=== PATIENT | male | born 1950 | race Two or more races ===

== ENCOUNTER 2025-02-06 16:38 | Emergency (ER) | payer BC, OTHER ==
[~2025-02-06] VITALS: Ht 185.4 cm; Wt 113.6 kg
--- NOTE | 2025-02-06 17:30 | ECG ---
[facility] Test Date: 2025-02-06 Test Time: 16:59:34 Pat Name: GUY MUSTAFA Department: ED Room: Gender: M Commercial Property Manager: GV : 1950 Requested By: PILAR DEMPSEY Order Number: [id number] Reading MD: Wolf Jha Measurements Intervals [place] Rate: 81 P: 68 MA: 164 QRS: 5 QRSD: 96 T: 62 QT: 451 QTc: 524 Interpretive Statements Sinus rhythm Borderline T wave abnormalities Prolonged QT interval Electronically Signed On 02-07-2025 17:41:56 PDT by Wolf Jha Please click the below link to view image of tracing.
[2025-02-06 17:33] LABS: Basophils # (auto) 0 10 ^3/uL (0-0.2); Basophils % (auto) 0.4 % (0.0-2.0); Eosinophils # (auto) 0.1 10 ^3/uL (0-0.8); Eosinophils % (auto) 1.1 % (0.0-7.0); Hematocrit 48.5 % (41.0-53.0); Hemoglobin 16.6 g/dL (13.5-17.5); Lymphocytes # (auto) 1.8 10 ^3/uL (0.4-5.4); Lymphocytes % (auto) 19.8 % (10.0-50.0); Mean Corpuscular Hemoglobin 31.4 pg (28.0-32.0); Mean Corpuscular Hgb Conc. 34.2 g/dL (32.0-36.0); Monocytes # (auto) 0.8 10 ^3/uL (0-1.3); Monocytes % (auto) 9.4 % (0.0-12.0); Neutrophils # (auto) 6.2 10 ^3/uL (1.6-8.6); Neutrophils % (auto) 69.3 % (37.0-80.0); Nucleated Red Blood Cells % 0.3 %; Platelet Count (auto) 244 10^3/uL (140-450); Red Blood Cells 5.27 10^6/uL (4.5-5.90); Red Cell Distribution Width 13.9 % (11.8-14.3); White Blood Cell 8.9 10^3/uL (4.4-10.8)
[2025-02-06 17:45] LABS: Sodium 145 mmol/L (136-145)
[2025-02-06 17:46] LABS: Anion Gap 12 (5-15); Calcium 10.1 mg/dL (8.7-10.4); Carbon Dioxide 23 mmol/L (20-31)
[2025-02-06 17:51] LABS: Blood Urea Nitrogen 10 mg/dL (9-23); Chloride 110 mmol/L (98-107); Glucose 100 mg/dL (74-106); Potassium 3.3 mmol/L (3.5-5.1)
--- NOTE | 2025-02-06 18:09 | DVH ---
CHEST RADIOGRAPH Indication: gen weak Technique: Single frontal view of the chest was obtained COMPARISON: None FINDINGS: Lines and Tubes: None Lungs: Clear Pleura: No effusion. No pneumothorax. Cardiomediastinal contours: Mild cardiomegaly Bones: Unremarkable IMPRESSION: 1. Mild cardiomegaly
--- NOTE | 2025-02-06 19:11 | ED.PDOC ---
History of Present Illness HPI Comments 75-year-old male brought in by EMS. Patient was complaining of generalized weakness for the last three days. States he did see PCP last week Thursday but failed to mention. States he takes no medications has had no prior surgeries. States he was seen at the PCP for dry skin on his elbow. Patient states he does smoke marijuana, denies alcohol use. Denies smoking. EMS states that his house was very hot, he had a Swamp cooler running but it was blowing out hot air. Patient was given a L of fluid in route and felt significant improvement. Chief Complaint: General Weakness Time Seen by MD: 16:39 Primary Care Provider: AIXA Reviewed Notes: Nurses Notes Allergies: Coded Allergies: NO KNOWN ALLERGIES (Unverified , 02/06/25) Information Source: Patient, Emergency Med Personnel Mode of Arrival: EMS Past Medical History PAST MEDICAL HISTORY: Denies Surgical History: Denies all surgeries Family History Family History: Reviewed,noncontributory to illness Constitutional: reports: diaphoresis, fatigue; denies: chills, fever, malaise, sweats, weakness, others EENTM: denies: blurred vision, double vision, ear bleeding, ear discharge, ear drainage, ear pain, ear ringing, eye pain, eye redness, hearing loss, mouth pain, mouth swelling, nasal discharge, nose bleeding, nose congestion, nose pain, photophobia, tearing, throat pain, throat swelling, voice changes, others Respiratory: denies: cough, hemoptysis, orthopnea, SOB at rest, shortness of breath, SOB with excertion, stridor, wheezing, others Cardiovascular: denies: chest pain, dizzy spells, diaphoresis, Dyspnea on exertion, edema, irregular heart beat, left arm pain, lightheadedness, palpitations, PND, syncope, others Gastrointestinal: denies: abdomen distended, abdominal pain, blood streaked bowels, constipated, diarrhea, dysphagia, difficulty swallowing, hematemesis, melena, nausea, poor appetite, poor fluid intake, rectal bleeding, rectal pain, vomiting, others Genitourinary: denies: burning, dysuria, flank pain, frequency, hematuria, incontinence, penile discharge, penile sore, pain, testicle pain, testicle swelling, urgency, others Neurological: denies: dizziness, fainting, headache, left sided numbness, left sided weakness, numbness, paresthesia, pre-existing deficit, right sided numbness, right sided weakness, seizure, speech problems, tingling, tremors, weakness, others Musculoskeletal: denies: back pain, gout, joint pain, joint swelling, muscle pain, muscle stiffness, neck pain, others Integumetry: denies: bruises, change in color, change in hair/nails, dryness, laceration, lesions, lumps, rash, wounds, others Physical Exam General Appearance: No Apparent Distress, Normal HEENT: Normal ENT Inspection, Pharynx Normal, TMs Normal Neck: Full Range of Motion, Non-Tender, Normal, Normal Inspection Respiratory: Chest Non-Tender, Lungs Clear, No Accessory Muscle Use, No Respiratory Distress, Normal Breath Sounds Cardiovascular: No Edema, No JVD, No Murmur, No Gallop, Normal Peripheral Pulses, Regular Rate/Rhythm Breast Exam: Deferred Gastrointestinal: No Organomegaly, Non Tender, No Pulsatile Mass, Normal Bowel Sounds, Soft Genitalia: Deferred Pelvic: Deferred Rectal: Deferred Extremities: No calf tenderness, Normal capillary refill, Normal inspection, Normal range of motion, Non-tender, No pedal edema Musculoskeletal : Apperance: Normal Neurologic: Alert, it application administrator II-XII nml as Tested, No Motor Deficits, Normal Affect, Normal Mood, No Sensory Deficits Cerebellar Function: Normal Reflexes: Normal Skin: Dry, Normal Color, Warm Lymphatic: No Adenopathy Was a procedure done? Was a procedure done?: No Differential Dx Considerations may include: Dehydration, CHF, MD, electrolyte imbalance. X-Ray, Labs, Meds, VS Vital Signs Date Time Temp Pulse Resp B/P (MAP) Pulse Ox O2 Delivery O2 Flow Rate FiO2 02/06/25 16:59 81 02/06/25 16:51 98.4 82 18 190/82 (118) 98 98.4 Lab Test 02/06/25 17:10 Range/Units White Blood Count 8.9 4.4-10.8 10^3/uL Red Blood Count 5.27 4.5-5.90 10^6/uL Hemoglobin 16.6 13.5-17.5 g/dL Hematocrit 48.5 41.0-53.0 % Mean Corpuscular Volume 92.0 80.0-100.0 fL Mean Corpuscular Hemoglobin 31.4 28.0-32.0 pg Mean Corpuscular Hemoglobin Concent 34.2 32.0-36.0 g/dL Red Cell Distribution Width 13.9 11.8-14.3 % Platelet Count 244 140-450 10^3/uL Mean Platelet Volume 9.5 6.9-10.8 fL Neutrophils (%) (Auto) 69.3 37.0-80.0 % Lymphocytes (%) (Auto) 19.8 10.0-50.0 % Monocytes (%) (Auto) 9.4 0.0-12.0 % Eosinophils (%) (Auto) 1.1 0.0-7.0 % Basophils (%) (Auto) 0.4 0.0-2.0 % Neutrophils # (Auto) 6.2 1.6-8.6 10 ^3/uL Lymphocytes # (Auto) 1.8 0.4-5.4 10 ^3/uL Monocytes # (Auto) 0.8 0-1.3 10 ^3/uL Eosinophils # (Auto) 0.1 0-0.8 10 ^3/uL Basophils # (Auto) 0 0-0.2 10 ^3/uL Nucleated Red Blood Cells 0.3 % Sodium Level 145 136-145 mmol/L Potassium Level 3.3 L 3.5-5.1 mmol/L Chloride Level 110 H 98-107 mmol/L Carbon Dioxide Level 23 20-31 mmol/L Anion Gap 12 5-15 Blood Urea Nitrogen 10 9-23 mg/dL Creatinine 1.25 0.700-1.30 mg/dL Glomerular Filtration Rate Calc 61 >90 mL/min BUN/Creatinine Ratio 8.0 L 10.0-20.0 Serum Glucose 100 74-106 mg/dL Calcium Level 10.1 8.7-10.4 mg/dL X-Ray, Labs, Meds, VS Comment Imaging: X-rays and CT scans were reviewed and interpreted by this provider, imaging shows no fractures and no pathological disease. Pending radiology review. Laboratory: Labs reviewed and interpreted by this provider. No significant abnormalities noted. Patient has prior medical visits reviewed. Med reconciliation performed Vital signs reviewed Time of 1ST Reevaluation: 19:10 Reevaluation 1ST: Improved Patient Education/Counseling: Diagnosis, Treatment, Need For Follow Up (Follow up with PCP in the next 2-4 days. Return to the emergency department if s ymptoms worsen over the next 24 hours.) Family Education/Counseling: Diagnosis SEPSIS Sepsis Screen Date sepsis recognized/suspect: Feb 06, 2025 Time Sepsis recognized/suspect: 1650 Recent Procedure: No On Antibiotic Therapy: No Respiratory Rate >20: No Heart Rate >90: No Temp<36 C (96.8 F) or >38.3 C: No SBP <90 or MAP <65 mmHG: No New Acute Mental Status Change: No Is the patient on CPAP, BIPAP,: No Orders/Vitals/Labs Physician Orders Urinalysis (02/06/25 16:45) Chest Xray 1 View (02/06/25 16:45) Vital Signs Date Time Temp Pulse Resp B/P (MAP) Pulse Ox O2 Delivery O2 Flow Rate FiO2 02/06/25 16:59 81 02/06/25 16:51 98.4 82 18 190/82 (118) 98 98.4 Laboratory Tests Test 02/06/25 17:10 White Blood Count 8.9 10^3/uL (4.4-10.8) Departure 1 Departure Time of Disposition: 19:10 Impression: Primary Impression: Heat exhaustion Qualified Codes: T67.5XXA - Heat exhaustion, unspecified, initial encounter Additional Impressions: Dehydration Hypokalemia Disposition: 01 HOME / SELF CARE / HOMELESS Condition: Fair Discharged With: Self Critical Care Note Critical Care Time?: No Stability Stability form required: No Heart Score Heart Score: Heart Score Response (Comments) Value History N/A 0 EKG N/A 0 Age N/A 0 Risk Factors N/A 0 Troponin N/A 0 Total 0 PILAR DEMPSEY Feb 06, 2025 19:11
[2025-02-06] MEDS: POTASSIUM EFFERVESENT TAB 25 MEQ PO ONE (20:19)
[2025-02-06 20:50] VITALS: BP 161/97; PULSE 91; RESP 19; TEMP 98.3
[2025-02-06 20:53] VITALS: O2SAT 93
[2025-02-07] MEDS ORDERED: CLON0.1T PO (18:56)
[2025-02-07] MEDS ORDERED: HYDR-4902 PO (18:56)
== END 2025-02-06 20:57 | disposition home or self-care (01) ==
LOC: ER 16:38 → EDBD 16:38 → ER 20:57
DX: T67.5XXA Heat exhaustion, unspecified, initial encounter (principal); E86.0 Dehydration; E87.6 Hypokalemia; X30.XXXA Exposure to excessive natural heat, initial encounter; Y93.89 Activity, other specified; Y92.89 Other specified places as the place of occurrence of the external cause; Y99.8 Other external cause status
CPT/HCPCS: 36415; 71045; 80048; 85025; 93005

== ENCOUNTER 2025-02-07 13:03 | Emergency (ER) | payer BC ==
[~2025-02-07] VITALS: Ht 182.9 cm; Wt 105.0 kg
--- NOTE | 2025-02-07 13:12 | ED.PDOC ---
History of Present Illness HPI Comments HPI: Poor Historian. 75-year-old male brought in by ambulance from home for generalized weakness. Patient lives alone at home. Patient was here yesterday and was discharged home. An APS case was open according to EMS. Patient is unable take care of himself at home. He is today willing to be placed somewhere. Patient is too weak to get up to even use the restroom he says and he had to pee on the floor. No history of fall or trauma or injury. Vital signs per EMS were stable. He was slightly hypertensive. EMS describes the home situation that it was messy and extremely hot and there was no air conditioning. Past Medical History: Past Surgical History: REVIEW OF SYSTEMS: CONSTITUTIONAL: Denies acute: fever, diaphoresis, chills, . HEAD: Denies acute: headache, photophobia Eyes: Denies acute: Double vision, vision loss, eye pain, eye discharge. EARS: Denies acute: tinnitus, hearing loss, ear discharge, ear pain, THROAT: Denies acute: sore throat, swelling, difficulty swallowing , pain with swallowing, change in voice. NECK: Denies acute: neck pain, neck swelling, stiff neck. HEART: Denies acute : chest pain, palpitations, LUNGS: Denies acute: SOB, wheezing, cough, hemoptysis ABDOMEN: Denies acute: abdominal pain, Nausea, Vomiting, diarrhea, melena , hematemesis, hematochezia SKIN: Denies acute: rash, redness, lesions, itchiness. EXTREMITIES: Denies acute: calf pain, numbness, tingling, weakness, denies pain in extremity. Denies acute: Low back pain. Neuro: Denies acute: focal neurological deficit, motor or sensory focal neurological deficit, tremors, seizure like activity, confusion, dizziness, change in mental status, loss of bowel or bladder function, cauda equina like symptoms. : Denies acute: dysuria, hematuria, flank pain, increase in urinary frequency. PSYCH: Denies acute: hallucination, suicidal ideation, homicidal ideation. PHYSICAL EXAM: General: ---no-----acute distress, awake and alert. Head: normocephalic, atraumatic. Neck: supple, trachea is midline, no swelling. Throat: Normal phonation. Eyes:, no erythema, no purulent discharge, no proptosis, no icterus. Heart: regular rate, regular rhythm, no significant murmur appreciated. Lungs: no apparent respiratory distress, Able to speak in full sentences. No wheezing, no rhonchi, no crackles. No stridors Clear to auscultation bilaterally. Abdomen: non tender to palpation, non distended, soft, no guarding, no rebound, + bowel sounds. Obese Neuro: Awake, Alert, oriented to name, self, situation, follows commands GCS=15. Speech is normal. Skin: no petechia, no purpura, no cyanosis, non-pale, not jaundice. Lower extremities: --no - Pitting edema no deformity, no focal swelling, no calf TTP. Makes eye contact. moves all four extremities. Face: no apparent facial droop. ED COURSE: DISCLAIMER: This medical document was created using an electronic medical record system with voice recognition software and computerized dictation system. Although this document has been carefully reviewed, there might still be some phonetic and typographical errors. Occasional wrong-word or "sound-alike" substitutions may have occurred due to the inherent limitations of voice recognition software. These areas are purely typographical due to imperfections of the software programs and do not reflect any compromise in the patient's medical care. Please read the chart carefully and recognize, using context, where these substitutions have occurred. Time Seen by MD: 13:00 Primary Care Provider: AIXA Reviewed Notes: Nurses Notes, Medications, Allergies Allergies: Coded Allergies: NO KNOWN ALLERGIES (Unverified , 02/06/25) Information Source: Patient, Emergency Med Personnel Mode of Arrival: EMS Severity: Moderate Duration: Since onset Prehospital treatment: None Past Medical History PAST MEDICAL HISTORY: Denies Surgical History: Denies all surgeries Family History Family History: Reviewed,noncontributory to illness, Unknown Social History Smoker: Non-Smoker Alcohol: Denies ETOH Use Drugs: Denies Drug Use Lives In: Home Was a procedure done? Was a procedure done?: No X-Ray, Labs, Meds, VS Vital Signs Date Time Temp Pulse Resp B/P (MAP) Pulse Ox O2 Delivery O2 Flow Rate FiO2 02/07/25 15:06 206/97 02/07/25 13:58 98.1 80 16 190/90 (123) 95 98.1 02/07/25 13:58 80 20 95 Room Air* 0 21 02/07/25 13:31 85 02/07/25 13:16 98.9 93 18 176/104 (128) 98 98.9 Lab Test 02/07/25 14:01 02/07/25 13:13 Range/Units Lactic Acid Level 1.1 0.4-2.0 mmol/L Troponin I High Sensitivity 23 22 </=54 ng/L White Blood Count 10.2 4.4-10.8 10^3/uL Red Blood Count 5.11 4.5-5.90 10^6/uL Hemoglobin 16.7 13.5-17.5 g/dL Hematocrit 47.6 41.0-53.0 % Mean Corpuscular Volume 93.2 80.0-100.0 fL Mean Corpuscular Hemoglobin 32.7 H 28.0-32.0 pg Mean Corpuscular Hemoglobin Concent 35.1 32.0-36.0 g/dL Red Cell Distribution Width 14.3 11.8-14.3 % Platelet Count 269 140-450 10^3/uL Mean Platelet Volume 9.3 6.9-10.8 fL Neutrophils (%) (Auto) 37.0-80.0 % Lymphocytes (%) (Auto) 10.0-50.0 % Monocytes (%) (Auto) 0.0-12.0 % Basophils (%) (Auto) 0.0-2.0 % Neutrophils # (Auto) 1.6-8.6 10 ^3/uL Lymphocytes # (Auto) 0.4-5.4 10 ^3/uL Monocytes # (Auto) 0-1.3 10 ^3/uL Differential Total Cells Counted 100.0 100 Neutrophils % (Manual) 69 37.0-80.0 Band Neutrophils % (Manual) 1 Lymphocytes % (Manual) 23 10.0-50.0 Monocytes % (Manual) 7 0-12 Eosinophils % (Manual) 0 0-7 Basophils % (Manual) 0 0.0-2.0 Metamyelocytes % (manual) 0 Myelocytes % (Manual) 0 Promyelocytes % (Manual) 0 Blast Cells % (Manual) 0 Reactive Lymphocytes 0 Platelet Estimate Adequate Sodium Level 143 136-145 mmol/L Potassium Level 3.4 L 3.5-5.1 mmol/L Chloride Level 110 H 98-107 mmol/L Carbon Dioxide Level 22 20-31 mmol/L Anion Gap 11 5-15 Blood Urea Nitrogen 11 9-23 mg/dL Creatinine 1.21 0.700-1.30 mg/dL Glomerular Filtration Rate Calc 63 >90 mL/min BUN/Creatinine Ratio 9.1 L 10.0-20.0 Serum Glucose 107 H 74-106 mg/dL Calcium Level 9.9 8.7-10.4 mg/dL Total Bilirubin 1.1 H 0.2-1.0 mg/dL Aspartate Amino Transferase (AST) 41 H <34 U/L Alanine Aminotransferase (ALT) 26 7-40 U/L Alkaline Phosphatase 88 46-116 U/L Creatine Kinase 733 H 46-171 U/L Total Protein 7.5 5.7-8.2 g/dL Albumin 4.6 3.2-4.8 g/dL Current Medications Medications (Trade) Dose Ordered Sig/Bryan Route Start Time Stop Time Status Last Admin Clonidine HCl (Catapres Tablet) 0.1 mg ONCE ONCE PO 02/07/25 14:45 02/07/25 14:48 DC 02/07/25 15:06 [place] [id number] Ph: [phone] DIAGNOSTIC IMAGING Diagnostic Imaging Report : [id number] Signed PATIENT: GUY MUSTAFA ACCT: [id number] UNIT: [id number] : 1950 LOC: ER ROOM / BED: / AGE / SEX: 75 / M ADM STATUS: REG ER SERVICE 1310 ORDERING PHYSICIAN: STACIE NICK DO PROCEDURE(s): CXRP - CHEST PORTABLE REASON: weak ORDER NUMBER(s): [id number], ACCESSION NUMBER(s): [id number] EXAM: XY CHEST PORTABLE HISTORY: weak TECHNIQUE: 1 view of the chest COMPARISON: XY CHEST XRAY 1 VIEW on DOS: 02/06/25 FINDINGS/IMPRESSION: LUNGS: Right infrahilar crowding of bronchovascular markings with a peripheral interstitial edema. Low lung volumes, which cause crowding of the bronchovascular markings. MEDIASTINUM: Unremarkable BONES: No acute osseous abnormality OTHER: None ATED BY: TJ MERIDA MD DICTATED DATE/TIME: 02/07/251423 SIGNED BY: TJ MERIDA MD SIGNED DATE/TIME: 02/07/25 142 CC: Time of 1ST Reevaluation: 13:30 Reevaluation 1ST: Unchanged Patient Education/Counseling: Diagnosis, Treatment, Prognosis Family Education/Counseling: No Family Present Departure 1 Departure Time of Disposition: 13:32 Impression: Primary Impression: Generalized weakness Additional Impressions: Rhabdomyolysis Heat exhaustion Need for social work specialist intervention Disposition: ADMITTED INPATIENT Admit to: Tele Condition: Guarded Discharged With: Self Critical Care Note Critical Care Time?: No I personally scribed for STACIE NICK DO ([email or web address]) on 02/07/25 at 13:12. Electronically submitted by Alessandro Flores ([email or web address]). I personally scribed for STACIE NICK DO ([email or web address]) on 02/07/25 at 14:36. Electronically submitted by Alessandro Flores ([email or web address]). STACIE NICK DO Feb 07, 2025 13:12
[2025-02-07 13:31] LABS: Hematocrit 47.6 % (41.0-53.0); Hemoglobin 16.7 g/dL (13.5-17.5); Mean Corpuscular Hemoglobin 32.7 pg (28.0-32.0); Mean Corpuscular Hgb Conc. 35.1 g/dL (32.0-36.0); Mean Corpuscular Volume 93.2 fL (80.0-100.0); Platelet Count (auto) 269 10^3/uL (140-450); Red Blood Cells 5.11 10^6/uL (4.5-5.90); Red Cell Distribution Width 14.3 % (11.8-14.3); White Blood Cell 10.2 10^3/uL (4.4-10.8)
[2025-02-07 13:42] LABS: Basophils % (manual) 0 (0.0-2.0); Blast Cells 0; Eosinophils % (manual) 0 (0-7); Metamyelocytes % 0; Myelocytes % 0; Promyelocytes % 0; Reactive Lymphocytes 0
[2025-02-07 13:50] LABS: Alanine Aminotransferase 26 U/L (7-40); Albumin 4.6 g/dL (3.2-4.8); Alkaline Phosphatase 88 U/L (46-116); Anion Gap 11 (5-15); BUN/Creatinine Ratio 9.1 (10.0-20.0); Bilirubin, Total 1.1 mg/dL (0.2-1.0); Blood Urea Nitrogen 11 mg/dL (9-23); Calcium 9.9 mg/dL (8.7-10.4); Carbon Dioxide 22 mmol/L (20-31); Sodium 143 mmol/L (136-145); Total Protein 7.5 g/dL (5.7-8.2)
[2025-02-07 13:52] LABS: Aspartate Aminotransferase 41 U/L (<34); Chloride 110 mmol/L (98-107); Creatine Kinase IFCC 733 U/L (46-171); Glucose 107 mg/dL (74-106); Potassium 3.4 mmol/L (3.5-5.1)
[2025-02-07 13:58] VITALS: PULSE 80; RESP 20; O2SAT 95
--- NOTE | 2025-02-07 14:26 | DVH ---
EXAM: XY CHEST PORTABLE HISTORY: weak TECHNIQUE: 1 view of the chest COMPARISON: XY CHEST XRAY 1 VIEW on DOS: 02/06/25 FINDINGS/IMPRESSION: LUNGS: Right infrahilar crowding of bronchovascular markings with a peripheral interstitial edema. L ow lung volumes, which cause crowding of the bronchovascular markings. MEDIASTINUM: Unremarkable BONES: No acute osseous abnormality OTHER: None
[2025-02-07 14:32] LABS: Band Neutrophils % (manual) 1; Lymphocytes % (manual) 23 (10.0-50.0); Monocytes % (manual) 7 (0-12); Platelet Estimate Adequate
[2025-02-07] MEDS: cloNIDine HCL 0.1 MG TAB PO ONE (15:06)
[2025-02-07] MEDS: SODIUM CHLORIDE 0.9% 1,000 ML IV ONE (17:00)
[2025-02-07] MEDS: HYDROcodone-ACET 5/325MG TAB PO PRN (17:52)
[2025-02-07] MEDS ORDERED: CLON0.1T PO (18:56)
[2025-02-07] MEDS ORDERED: HYDR-4902 PO (18:56)
[2025-02-07 19:40] VITALS: PULSE 61; RESP 19
[2025-02-07] MEDS: cloNIDine HCL 0.1 MG TAB PO SCH (22:00)
--- NOTE | 2025-02-07 22:30 | DVHINCON2 ---
NIVIA WASHINGTON [facility] [birth year]: Date of service: Feb 07, [address] Dowling Reason for Consultation Medical Management History of Present Illness Rene Albrecht is a 75-year-old male with no reported past medical history who presents from home with a chief complaint of generalized weakness. Patient reports he lives alone at home. Patient was here in the ED yesterday and was discharged home. An APS case was open according to EMS. Patient is unable take care of himself at home. Patient reports he here today willing to be placed somewhere. Patient is too weak to get up to even use the restroom he says and he had to pee on the floor. No history of fall or trauma or injury. Per EMS notes , "describes the home situation that it was messy and extremely hot and there was no air conditioning." Patient was evaluated by PT and recommendation for SNF placement. Past Medical History none reported Past Surgical History none reported Family History none contributory Social History marijuana use Allergies: Coded Allergies: NO KNOWN ALLERGIES (Unverified , 02/06/25) Home Meds Active Scripts Hydrocodone-Acetaminophen (Hydrocodone Bitartrate/AC 5-325 mg) 1 Tab Tab, 1 TAB PO Q6HPRN PRN, #10 TAB Prov:KALEB NO MD 02/07/25 Clonidine Hydrochloride (Clonidine Hcl) 0.1 Mg Tab, 0.1 MG PO BID, #60 TAB Prov:KALEB NO MD 02/07/25 Current Medications Current Medications Medications (Trade) Dose Ordered Sig/Bryan Route PRN Reason Start Time Stop Time Status Last Admin Clonidine HCl (Catapres Tablet) 0.1 mg BID PO 02/07/25 22:00 Acetaminophen/ Hydrocodone Bitart ([place] 5/325MG Tab) 1 tab Q4HPRN PRN PO PAIN SCALE 4-6 OR TEMP>100.4 02/07/25 17:45 02/07/25 17:52 Review of Systems generalized weakness Vital Signs Vital Signs Date Time Temp Pulse Resp B/P (MAP) Pulse Ox O2 Delivery O2 Flow Rate FiO2 02/07/25 20:00 63 02/07/25 19:42 98.6 19 158/76 (103) 91 98.6 02/07/25 13:58 Room Air* 0 21 Physical Exam HEENT pupils are reactive Neck is supple CV is S1-S2 regular rate and rhythm Respiratory diminished breath sounds bases GI positive bowel sound Extremity no edema 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0 % Lymphocytes (%) (Auto) 10.0-50.0 % Monocytes (%) (Auto) 0.0-12.0 % Basophils (%) (Auto) 0.0-2.0 % Neutrophils # (Auto) 1.6-8.6 10 ^3/uL Lymphocytes # (Auto) 0.4-5.4 10 ^3/uL Monocytes # (Auto) 0-1.3 10 ^3/uL Differential Total Cells Counted 100.0 100 Neutrophils % (Manual) 69 37.0-80.0 Band Neutrophils % (Manual) 1 Lymphocytes % (Manual) 23 10.0-50.0 Monocytes % (Manual) 7 0-12 Eosinophils % (Manual) 0 0-7 Basophils % (Manual) 0 0.0-2.0 Metamyelocytes % (manual) 0 Myelocytes % (Manual) 0 Promyelocytes % (Manual) 0 Blast Cells % (Manual) 0 Reactive Lymphocytes 0 Platelet Estimate Adequate Sodium Level 143 136-145 mmol/L Potassium Level 3.4 L 3.5-5.1 mmol/L Chloride Level 110 H 98-107 mmol/L Carbon Dioxide Level 22 20-31 mmol/L Anion Gap 11 5-15 Blood Urea Nitrogen 11 9-23 mg/dL Creatinine 1.21 0.700-1.30 mg/dL Glomerular Filtration Rate Calc 63 >90 mL/min BUN/Creatinine Ratio 9.1 L 10.0-20.0 Serum Glucose 107 H 74-106 mg/dL Calcium Level 9.9 8.7-10.4 mg/dL Total Bilirubin 1.1 H 0.2-1.0 mg/dL Aspartate Amino Transferase (AST) 41 H <34 U/L Alanine Aminotransferase (ALT) 26 7-40 U/L Alkaline Phosphatase 88 46-116 U/L Creatine Kinase 733 H 46-171 U/L Total Protein 7.5 5.7-8.2 g/dL Albumin 4.6 3.2-4.8 g/dL Assessment This is a 75 yo male with no reported past medical history who presents to the hospital with generalized weakness , seeking placement due to not being able to care for himself at home. Lives home alone. Patient pending SNF placement. Problems(with codes): (1) Generalized weakness (2) Need for pediatric social worker intervention Plan/Recommendation Plan for SNF placement , antihypertensive medication , analgesic as needed. Oral hydration. Patient pending SNF placement. Labs WBC 10.2, H&H 16.7/47.6, Platelets 269, Na 143, K 3.4, BUN 11/1.21, Patient reported he is unable to take care of himself and would like placement. Discussed with HMO ANITRA Javed pending SNF placement to [facility]. Plan discussed with: Patient, Other KALEB NO MD 02/08/25 1050: Allergies: Coded Allergies: NO KNOWN ALLERGIES (Unverified , 02/06/25) Home Meds Active Scripts Hydrocodone-Acetaminophen (Hydrocodone Bitartrate/AC 5-325 mg) 1 Tab Tab, 1 TAB PO Q6HPRN PRN, #10 TAB Prov:KALEB NO MD 02/07/25 Clonidine Hydrochloride (Clonidine Hcl) 0.1 Mg Tab, 0.1 MG PO BID, #60 TAB Prov:KALEB NO MD 02/07/25 Additional Comments Additional Comments Additional Comments Patient's chart is reviewed and discussed with the nurse practitioner. Patient is seen and evaluated by nurse practitioner. I agree with her evaluation, documentation, assessment and care plan as outlined. NIVIA WASHINGTON Feb 07, 2025 22:30 KALEB NO MD Feb 08, 2025 10:50
[2025-02-08] MEDS ORDERED: hydrALAZINE HCL 20 MG/ML VL IV PRN (02:00)
[2025-02-08] MEDS ORDERED: ACETAMINOPHEN 325 MG TAB PO PRN (02:00)
[2025-02-08 07:30] VITALS: PULSE 64; RESP 14; TEMP 97.7; O2SAT 95
[2025-02-08 12:00] VITALS: BP 179/63; PULSE 75; RESP 21; O2SAT 95
--- NOTE | 2025-02-09 10:54 | ECG ---
[facility] Test Date: 2025-02-07 Test Time: 13:31:58 Pat Name: GUY MUSTAFA Department: ED Room: Gender: M Mortarman: md : 1950 Requested By: STACIE NICK Order Number: [id number] Reading MD: Wolf Jha Measurements Intervals [place] Rate: 85 P: 30 HI: 152 QRS: 0 QRSD: 99 T: 60 QT: 380 QTc: 452 Interpretive Statements Sinus rhythm Electronically Signed On 02-10-2025 21:14:21 PDT by Wolf Jha Please click the below link to view image of tracing.
== END 2025-02-08 12:32 ==
LOC: ER 13:03 → EDBD 13:03 → ER 02-08 12:30
DX: T67.5XXA Heat exhaustion, unspecified, initial encounter (principal); R53.1 Weakness; M62.82 Rhabdomyolysis; F12.90 Cannabis use, unspecified, uncomplicated; Z79.899 Other long term (current) drug therapy; X58.XXXA Exposure to other specified factors, initial encounter; Y93.89 Activity, other specified; Y92.89 Other specified places as the place of occurrence of the external cause; Y99.8 Other external cause status
CPT/HCPCS: 36415; 71045; 80053; 82550; 83605; 84484; 85007; 85027; 93005; 96360; 99285; J7030; 97163

== ENCOUNTER 2025-06-18 11:33 | Inpatient (IN) | payer MEDICARE, MEDICAID ==
[~2025-06-18] VITALS: Ht 182.9 cm; Wt 101.8 kg
[~2025-06-18 11:33] MED LIST: CLON0.1T PO; HYDR-4902 PO
--- NOTE | 2025-06-18 12:35 | ED.PDOC ---
Musculoskeletal HPI Comments 75-year-old man presented to the emergency department complaining of lower extremity swelling pain to the right ankle and right foot and unable to walk patient has a history of CVA and hypertension Chief Complaint: Lower Extremity Time Seen by MD: 12:07 Primary Care Provider: ? Reviewed Notes: Nurses Notes, Medications, Allergies Allergies: Coded Allergies: NO KNOWN ALLERGIES (Unverified , 02/06/25) Home Meds Active Scripts Hydrocodone-Acetaminophen (Hydrocodone Bitartrate/AC 5-325 mg) 1 Tab Tab, 1 TAB PO Q6HPRN PRN, #10 TAB Prov:KALEB NO MD 02/07/25 Clonidine Hydrochloride (Clonidine Hcl) 0.1 Mg Tab, 0.1 MG PO BID, #60 TAB Prov:KALEB NO MD 02/07/25 Information Source: Patient Mode of Arrival: EMS Location: Right, Bilateral Extremity Location: Ankle, Foot Timing: Days, Came on: Gradually Severity: Moderate Able to Move Extremity: No Bear Weight: Limited Pain: Moderate Hand Dominance: Right Mechanism: Other (Fall) Circumstances: Fall Onset of Symptoms: After Trauma Symptoms: Swelling, Pain DVT Risk Factors: Recent trauma, Immobilization Last Tetanus: Unknown Associated signs and symptoms: Swelling, Ankle pain, Leg pain, Foot pain Past Medical History PAST MEDICAL HISTORY: CVA, HTN Surgical History: Denies all surgeries Family History Family History: Reviewed,noncontributory to illness, Unknown Social History Smoker: Non-Smoker Alcohol: Denies ETOH Use Drugs: Denies Drug Use Lives In: Home Constitutional: reports: weakness; denies: chills, diaphoresis, fatigue, fever, malaise, sweats, others EENTM: denies: blurred vision, double vision, ear bleeding, ear discharge, ear drainage, ear pain, ear ringing, eye pain, eye redness, hearing loss, mouth pain, mouth swelling, nasal discharge, nose bleeding, nose congestion, nose pain, photophobia, tearing, throat pain, throat swelling, voice changes, others Respiratory: denies: cough, hemoptysis, orthopnea, SOB at rest, shortness of breath, SOB with excertion, stridor, wheezing, others Cardiovascular: denies: chest pain, dizzy spells, diaphoresis, Dyspnea on exertion, edema, irregular heart beat, left arm pain, lightheadedness, palpitations, PND, syncope, others Gastrointestinal: denies: abdomen distended, abdominal pain, blood streaked bowels, constipated, diarrhea, dysphagia, difficulty swallowing, hematemesis, melena, nausea, poor appetite, poor fluid intake, rectal bleeding, rectal pain, vomiting, others Genitourinary: denies: burning, dysuria, flank pain, frequency, hematuria, incontinence, penile discharge, penile sore, pain, testicle pain, testicle swelling, urgency, others Neurological: reports: pre-existing deficit; denies: dizziness, fainting, headache, left sided numbness, left sided weakness, numbness, paresthesia, right sided numbness, right sided weakness, seizure, speech problems, tingling, tremors, weakness, others Musculoskeletal: denies: back pain, gout, joint pain, joint swelling, muscle pain, muscle stiffness, neck pain, others Integumetry: denies: bruises, change in color, change in hair/nails, dryness, laceration, lesions, lumps, rash, wounds, others Allergic/Immunocompromised: denies: Difficulty Healing, Frequent Infections, Hi ves, Itching, others Hematologic/Lymphatic: denies: anemia, blood clots, easy bleeding, easy bruising, swollen glands, others Endocrine: denies: excessive hunger, excessive sweating, excessive thirst, excessive urination, flushing, intolerance to cold, intolerance to heat, unexplained weight gain, unexplained weight loss, others Psychiatric: denies: anxiety, bipolar disorder, depression, hopeless, panic disorder, schizophrenia, sleepless, suicidal, others All Other Systems: Reviewed and Negative Physical Exam General Appearance: Moderate Distress, Obese HEENT: Normal ENT Inspection, PERRL/EOMI Neck: Full Range of Motion, Non-Tender, Normal, Normal Inspection Respiratory: Chest Non-Tender, Lungs Clear, No Accessory Muscle Use, No Respiratory Distress, Normal Breath Sounds Cardiovascular: No Edema, No JVD, No Murmur, No Gallop, Normal Peripheral Pulses, Regular Rate/Rhythm Breast Exam: Deferred Gastrointestinal: No Organomegaly, Non Tender, No Pulsatile Mass, Normal Bowel Sounds, Soft Genitalia: Deferred Pelvic: Deferred Rectal: Deferred Extremities: Leg edema, No calf tenderness, Normal capillary refill, Normal inspection, Normal range of motion, Non-tender, Pedal edema, Swelling, Tender Neurologic: Alert, adjunct psychology faculty member II-XII nml as Tested, No Motor Deficits, Normal Affect, Normal Mood, No Sensory Deficits Cerebellar Function: Normal Reflexes: NOT DONE Skin: Dry, Normal Color, Warm Peripheral Pulses: 1+ carotid (R), 1+ carotid (L) Lymphatic: No Adenopathy Was a procedure done? Was a procedure done?: No Differential Diagnosis EXT Differential Diagnosis: Cellulitis, CHF, Deep Vein Thrombosis, Sprain, Gout, DJD, Neurovascular injury X-Ray, Labs, Meds, VS Vital Signs Date Time Temp Pulse Resp B/P (MAP) Pulse Ox O2 Delivery O2 Flow Rate FiO2 06/18/25 13:16 72 16 97 Room Air 06/18/25 13:16 98.4 72 16 137/76 (96) 97 98.4 06/18/25 11:33 98.7 74 16 117/73 96 98.7 Lab Test 06/18/25 12:59 Range/Units White Blood Count 7.9 4.4-10.8 10^3/uL Red Blood Count 4.47 L 4.5-5.90 10^6/uL Hemoglobin 14.7 13.5-17.5 g/dL Hematocrit 42.2 41.0-53.0 % Mean Corpuscular Volume 94.3 80.0-100.0 fL Mean Corpuscular Hemoglobin 32.9 H 28.0-32.0 pg Mean Corpuscular Hemoglobin Concent 34.9 32.0-36.0 g/dL Red Cell Distribution Width 13.3 11.8-14.3 % Platelet Count 263 140-450 10^3/uL Mean Platelet Volume 8.7 6.9-10.8 fL Neutrophils (%) (Auto) 75.1 37.0-80.0 % Lymphocytes (%) (Auto) 13.7 10.0-50.0 % Monocytes (%) (Auto) 10.3 0.0-12.0 % Eosinophils (%) (Auto) 0.5 0.0-7.0 % Basophils (%) (Auto) 0.4 0.0-2.0 % Neutrophils # (Auto) 6.0 1.6-8.6 10 ^3/uL Lymphocytes # (Auto) 1.1 0.4-5.4 10 ^3/uL Monocytes # (Auto) 0.8 0-1.3 10 ^3/uL Eosinophils # (Auto) 0 0-0.8 10 ^3/uL Basophils # (Auto) 0 0-0.2 10 ^3/uL Nucleated Red Blood Cells 0.1 % Sodium Level 143 136-145 mmol/L Potassium Level 3.9 3.5-5.1 mmol/L Chloride Level 107 98-107 mmol/L Carbon Dioxide Level 27 20-31 mmol/L Anion Gap 9 5-15 Blood Urea Nitrogen 15 9-23 mg/dL Creatinine 1.29 0.700-1.30 mg/dL Glomerular Filtration Rate Calc 59 >90 mL/min BUN/Creatinine Ratio 11.6 10.0-20.0 Serum Glucose 82 74-106 mg/dL Calcium Level 9.0 8.7-10.4 mg/dL Magnesium Level 2.0 1.6-2.6 mg/dL Current Medications Medications (Trade) Dose Ordered Sig/Bryan Route Start Time Stop Time Status Last Admin Sodium Chloride 500 ml @ 500 mls/hr Q1H ONCE IV 06/18/25 12:30 06/18/25 13:29 DC 06/18/25 13:12 Sodium Chloride 1,000 ml @ 150 mls/hr Q6H40M ONCE IV 06/18/25 12:30 06/18/25 19:09 06/18/25 13:12 X-Ray, Labs, Meds, VS Comment Course in the emergency eventful patient came back because of lower extremities edema very painful right foot and ankle and the patient can hardly walk he is on wheelchair called the ambulance and has no one to take care of him next blood pressure 117/73 Blood pressure 117/73 Chest x-ray has bibasilar Ziller airspace opacities CBC normal BNP negative Magnesium 2.0 X-ray to the right foot shows more arthritis of the great toe The right ankle is normal The patient will be admitted for possible placement Time of 1ST Reevaluation: 12:07 Reevaluation 1ST: Unchanged Time of 2ND Reevaluation: 14:26 Reevaluation 2ND: Unchanged Patient Education/Counseling: Diagnosis, Treatment, Prognosis Family Education/Counseling: Diagnosis, Treatment, Prognosis, No Family Present Departure 1 Departure Time of Disposition: 14:29 Impression: Primary Impression: Generalized weakness Additional Impressions: Need for social services designee intervention Opacities of both lungs present on chest x-ray Bilateral edema of lower extremity Unable to care for self Disposition: 02 [facility]ORT TERM [facility]OSP[facility] Condition: Fair Critical Care Note Critical Care Time?: No Stability Stability form required: Yes Unstable for transfer: Requires medication (Requires Med for stabilization) Heart Score Heart Score: Heart Score Response (Comments) Value History N/A 0 EKG N/A 0 Age >65 2 Risk Factors 1 or 2 risk factors 1 Troponin N/A 0 Total 3 SILVIO MURILLO MD Jun 18, 2025 12:35
--- NOTE | 2025-06-18 13:09 | DVH ---
XY CHEST TWO VIEWS ROUTINE, HISTORY: Fluid retention COMPARISON: XY CHEST PORTABLE on DOS: 02/07/25, XY CHEST XRAY 1 VIEW on DOS: 02/06/25, CR CHEST 2 VIEW on DOS: 10/30/23 XY CHEST PORTABLE on DOS: 02/07/25, XY CHEST XRAY 1 VIEW on DOS: 02/06/25, CR CHEST 2 VIEW on DOS: TECHNICAL DATA: 2 view of the chest was obtained. FINDINGS: Lines and tubes: None Cardiomediastinal silhouette: normal Pulmonary vasculature: normal Lung expansion: low Lung airspace: Bibasilar airspace opacity. Lung interstitium: normal Pleura: normal Pneumothorax: no Bones: Unremarkable Other: no IMPRESSION: Bibasilar airspace opacity.
[2025-06-18] MEDS: SODIUM CHLORIDE 0.9% 500 ML IV ONE (13:12)
[2025-06-18] MEDS: SODIUM CHLORIDE 0.9% 1,000 ML IV ONE (13:12)
[2025-06-18 13:19] LABS: Hematocrit 42.2 % (41.0-53.0); Hemoglobin 14.7 g/dL (13.5-17.5); Mean Corpuscular Hemoglobin 32.9 pg (28.0-32.0); Mean Corpuscular Volume 94.3 fL (80.0-100.0); Nucleated Red Blood Cells % 0.1 %
[2025-06-18 13:24] LABS: Chloride 107 mmol/L (98-107); Potassium 3.9 mmol/L (3.5-5.1); Sodium 143 mmol/L (136-145)
[2025-06-18 13:25] LABS: Anion Gap 9 (5-15); Calcium 9.0 mg/dL (8.7-10.4); Carbon Dioxide 27 mmol/L (20-31)
[2025-06-18 13:30] LABS: BUN/Creatinine Ratio 11.6 (10.0-20.0); Blood Urea Nitrogen 15 mg/dL (9-23); Glucose 82 mg/dL (74-106); Magnesium 2.0 mg/dL (1.6-2.6)
--- NOTE | 2025-06-18 13:39 | DVH ---
CLINICAL INDICATION: fall TECHNIQUE: 3 radiographic views of the right ankle were obtained. Comparison: None FINDINGS/IMPRESSION: Boehler's angle is 31.08 degrees Acute fracture dislocation Distal tibia and fibula are intact.
--- NOTE | 2025-06-18 13:45 | DVH ---
CLINICAL INDICATION: fall TECHNIQUE: 3 radiographic views of the right foot were obtained. Comparison: None FINDINGS/IMPRESSION: Arthritic changes are noted of the metatarsal phalangeal joint of the right great toe. Boehler's angle appears measure 34 0.2 degrees. This is within normal limits. There are no fractures or dislocations. There are no radiopaque foreign bodies.
[2025-06-18 15:01] VITALS: PULSE 71; RESP 22; O2SAT 95
[2025-06-18 15:19] LABS: Urine Protein, UAD 1+ (Negative)
--- NOTE | 2025-06-18 15:22 | DVHHPRES ---
History of Present Illness Resident Creating Document: JACQUELINE BANERJEE History of Present Illness Rene Albrecht is a 75-year-old male patient who presents to ED with chief complaint of not being able to bear weight on his right foot. Patient reports recent history of CVA two weeks ago, with residual left-sided weakness, he went to a rehab center and he is now mobilizes with wheelchair. Patient was able to previously stent in bear weight on his right foot, but since the day of his admission, he could not bear his weight, prompting his visit to the ED. Denies any other associated symptom. Past medical history: Hypertension, CVA two weeks ago with left-sided residual weakness, peritonsillar abscess status post drainage in 2022 Surgical history: Peritonsillar abscess incision and drainage Family history: Noncontributory Social history: Lives in [facility] alone (next of kin is Ariana Cortes who is a friend). Uses marijuana. Current tobacco abuse (10 pack-year history of smoking). Denies current alcohol and other drug abuse. Allergy: Denies Home medication: Denies (he says he was not taking any aspirin or atorvastatin even after stroke). Patient seen and examined at bedside. Currently has no new complaints. Patient admitted to [facility] for further evaluation. Past Medical History Per HPI Past Surgical History Per HPI Family History Per HPI Past Social History Per HPI Review of Systems Review of Systems Per HPI Allergies: Coded Allergies: NO KNOWN ALLERGIES (Unverified , 02/06/25) Medications Current Medications Medications Dose Ordered Sig/Bryan Route Start Time Stop Time Status Last Admin Dose Admin Acetaminophen 325 mg Q4HP PRN PO 06/18/25 15:00 Ondansetron HCl 4 mg Q4HP PRN IV 06/18/25 15:00 Morphine Sulfate 2 mg Q4HPRN PRN IV 06/18/25 15:00 Enoxaparin Sodium 40 mg DAILY SC 06/19/25 10:00 Exam Vital Signs Vital Signs Date Time Temp Pulse Resp B/P (MAP) Pulse Ox O2 Delivery O2 Flow Rate FiO2 06/18/25 15:01 98.0 71 22 131/65 (87) 95 98.0 06/18/25 13:16 Room Air Exam Patient lying in bed, in no acute distress General: Lucid, afebrile, mucosae are dry Cardiovascular: Normal S1 and S2. No murmurs, gallops or rubs Respiratory: Normal ventilation mechanics. Clear lung sounds on auscultation Abdomen: Soft, nontender, no organomegaly, normal bowel sounds MSK/skin: Mobilizes 4 limbs. Skin is dry and warm. Exophytic growths in bilateral feet, no signs of erythema. Bilateral lower limb extremity swelling, right greater than left. Neurological: Oriented in 3 spheres. Left-sided facial brachial crural weakness, no other motor no sensitive deficits. Pupils are isocoric and react moraima Labs/Xrays Labs Test 06/18/25 15:03 06/18/25 12:59 Range/Units White Blood Count 7.9 4.4-10.8 10^3/uL Red Blood Count 4.47 L 4.5-5.90 10^6/uL Hemoglobin 14.7 13.5-17.5 g/dL Hematocrit 42.2 41.0-53.0 % Mean Corpuscular Volume 94.3 80.0-100.0 fL Mean Corpuscular Hemoglobin 32.9 H 28.0-32.0 pg Mean Corpuscular Hemoglobin Concent 34.9 32.0-36.0 g/dL Red Cell Distribution Width 13.3 11.8-14.3 % Platelet Count 263 140-450 10^3/uL Mean Platelet Volume 8.7 6.9-10.8 fL Neutrophils (%) (Auto) 75.1 37.0-80.0 % Lymphocytes (%) (Auto) 13.7 10.0-50.0 % Monocytes (%) (Auto) 10.3 0.0-12.0 % Eosinophils (%) (Auto) 0.5 0.0-7.0 % Basophils (%) (Auto) 0.4 0.0-2.0 % Neutrophils # (Auto) 6.0 1.6-8.6 10 ^3/uL Lymphocytes # (Auto) 1.1 0.4-5.4 10 ^3/uL Monocytes # (Auto) 0.8 0-1.3 10 ^3/uL Eosinophils # (Auto) 0 0-0.8 10 ^3/uL Basophils # (Auto) 0 0-0.2 10 ^3/uL Nucleated Red Blood Cells 0.1 % Sodium Level 143 136-145 mmol/L Potassium Level 3.9 3.5-5.1 mmol/L Chloride Level 107 98-107 mmol/L Carbon Dioxide Level 27 20-31 mmol/L Anion Gap 9 5-15 Blood Urea Nitrogen 15 9-23 mg/dL Creatinine 1.29 0.700-1.30 mg/dL Glomerular Filtration Rate Calc 59 >90 mL/min BUN/Creatinine Ratio 11.6 10.0-20.0 Serum Glucose 82 74-106 mg/dL Calcium Level 9.0 8.7-10.4 mg/dL Magnesium Level 2.0 1.6-2.6 mg/dL SEPSIS Sepsis Screen Date sepsis recognized/suspect: Jun 18, 2025 Time Sepsis recognized/suspect: 1203 Recent Procedure: No On Antibiotic Therapy: No Respiratory Rate >20: No Heart Rate >90: No Temp<36 C (96.8 F) or >38.3 C: No SBP <90 or MAP <65 mmHG: No New Acute Mental Status Change: No Is the patient on CPAP, BIPAP,: No Physician Orders R Ankle 3 View (06/18/25 12:23) R Foot 3 View Xray (06/18/25 12:23) Chest Two Views Routine (06/18/25 12:23) Heplock Iv (06/18/25 12:23) Blood Pressure (06/18/25 12:23) Electrocardigram (06/18/25 12:23) Sodium Chloride 0.9% (06/18/25 12:30) Admit (06/18/25 14:58) Code Status (06/18/25 14:58) Acetaminophen Tablet (Tylenol Tablet) (06/18/25 15:00) Ondansetron Hcl (Zofran) (06/18/25 15:00) Complete Blood Count (06/19/25 04:00) Comprehensive Metabolic Panel (06/19/25 04:00) Cardiac Diet-2gna,Lofat,Lochol (06/18/25 Dinner) Morphine Sulfate Injection (06/18/25 15:00) Enoxaparin Sodium (Lovenox) (06/19/25 10:00) Oxygen By Nasal Cannula (06/18/25 14:58) Stat Ekg For Chest Pain (06/18/25 14:58) Notify Of Changes From Base (06/18/25 14:58) Parks Worker For 24 Hours (06/18/25 14:58) Emergency Dysrhythmia Protocol (06/18/25 14:58) Rhythm Strips Once Every Shift (06/18/25 14:58) Vitamin D, 25-Hydroxy (06/18/25 14:58) Vitamin B12 (06/18/25 14:58) Urinalysis (06/18/25 14:58) Thyroid Stimulating Hormone (06/18/25 14:58) PTPTT (06/18/25 14:58) Phosphorus (06/18/25 14:58) Lipid Panel (06/18/25 14:58) Lipase (06/18/25 14:58) Hemoglobin A1c (06/18/25 14:58) Drug Screen (06/18/25 14:58) Vital Signs Date Time Temp Pulse Resp B/P (MAP) Pulse Ox O2 Delivery O2 Flow Rate FiO2 06/18/25 15:01 98.0 71 22 131/65 (87) 95 98.0 06/18/25 15:01 98.0 71 22 131/65 (87) 95 98.0 06/18/25 13:16 72 16 97 Room Air 06/18/25 13:16 98.4 72 16 137/76 (96) 97 98.4 06/18/25 11:33 98.7 74 16 117/73 96 98.7 Laboratory Tests Test 06/18/25 12:59 White Blood Count 7.9 10^3/uL (4.4-10.8) Medications Medications Dose Ordered Sig/Bryan Route Start Time Stop Time Status Last Admin Dose Admin Sodium Chloride 500 ml @ 500 mls/hr Q1H ONCE IV 06/18/25 12:30 06/18/25 13:29 DC 06/18/25 13:12 500 MLS/HR Sodium Chloride 1,000 ml @ 150 mls/hr Q6H40M ONCE IV 06/18/25 12:30 06/18/25 19:09 06/18/25 13:12 150 MLS/HR Assessment/Plan Assessment/Plan ASSESSMENT Acute respiratory failure COPD exacerbation Community-acquired pneumonia Gram-positive/Gram-negative Questionable right foot cellulitis Ruled out osteomyelitis Ruled out DVT Ruled out acute fractures of right foot Recent hospitalization due to CVA with left-sided weakness PLAN Patient currently on oxygen therapy with nasal cannula 2 L/min Currently under empiric IV antibiotic (cefepime and vancomycin) Ordered pancultures and respiratory swabs Ordered foot x-ray and CT which ruled out acute findings of right foot. Ordered bilateral lower limb venous ultrasound which ruled out DVT Ordered echocardiogram and BNP Goals of care discussed with patient for over 18 minutes: Full code status Discussed case with Dr. Aldana, patient and nurses: Patient admitted to [facility]. Currently with acute respiratory failure secondary to COPD exacerbation/community-acquired pneumonia, on oxygen therapy, bronchodilators, IV steroids and IV antibiotics Ordered echocardiogram and BNP since patient presents bilateral lower limb swelling, ruling out DVT. Patient has poor prognosis. Plan discussed with: Patient, Other (Nurses) My Orders Orders - JACQUELINE BANERJEE RESIDENT Procedure Category Date Status Time Admit ADMIT 06/18/25 Transmitted 14:58 Code Status CODE 06/18/25 Transmitted 14:58 Acetaminophen Tablet PHA 06/18/25 In Process (Tylenol Tablet) 15:00 Ondansetron Hcl PHA 06/18/25 In Process (Zofran) 15:00 Complete Blood Count LAB 06/19/25 Verified 04:00 Comprehensive LAB 06/19/25 Verified Metabolic Panel 04:00 Cardiac DIET 06/18/25 Transmitted Diet-2gna,Lofat,Lochol Dinner Morphine Sulfate PHA 06/18/25 In Process Injection 15:00 Enoxaparin Sodium PHA 06/19/25 In Process (Lovenox) 10:00 Oxygen By Nasal RT 06/18/25 Transmitted Cannula 14:58 Stat Ekg For Chest SHAISTA 06/18/25 In Process Pain 14:58 Notify Of Changes SHAISTA 06/18/25 In Process From Base 14:58 Parks Worker For SHAISTA 06/18/25 In Process 24 Hours 14:58 Emergency Dysrhythmia SHAISTA 06/18/25 In Process Protocol 14:58 Rhythm Strips Once SHAISTA 06/18/25 In Process Every Shift 14:58 Vitamin D, 25-Hydroxy LAB 06/18/25 In Process 14:58 Vitamin B12 LAB 06/18/25 In Process 14:58 Urinalysis LAB 06/18/25 In Process 14:58 Thyroid Stimulating LAB 06/18/25 In Process Hormone 14:58 PTPTT LAB 06/18/25 In Process 14:58 Phosphorus LAB 06/18/25 In Process 14:58 Lipid Panel LAB 06/18/25 In Process 14:58 Lipase LAB 06/18/25 In Process 14:58 Hemoglobin A1c LAB 06/18/25 In Process 14:58 Drug Screen LAB 06/18/25 In Process 14:58 Date of Service: Jun 18, 2025 Billing Provider: CONOR ALDANA MD Common Visit Codes: 43032-BQVCXZN INP/OBS CARE (HIGH) Secondary Visit Codes: 05112-[id number] CARE PLAN 30 MINUTES JACQUELINE BANERJEE RESIDENT Jun 18, 2025 15:22
[2025-06-18 15:37] LABS: INR 1.05 (0.9-1.15); Partial Thromboplastin Time 32.9 SEC (24.5-34.5); Prothrombin Time 11.1 sec (9.3-11.8)
[2025-06-18 15:42] LABS: Amphetamine Screen, Urine Neg (NEGATIVE); Benzodiazephine Screen, Urine Neg (NEGATIVE); Cannabinoid Screen, Urine Pos (NEGATIVE); Opiate Scree,Urine Neg (NEGATIVE)
[2025-06-18 15:43] LABS: Triglycerides 137.0 mg/dL (< 150)
[2025-06-18 15:45] LABS: HDL Cholesterol 42.0 mg/dL (40-59)
[2025-06-18 15:45] LABS: Barbiturate Scree,Urine Neg (NEGATIVE); Phencyclidine Screen, Urine Neg (NEGATIVE)
[2025-06-18 15:46] LABS: Cholesterol 160.0 mg/dL (< 200)
[2025-06-18 15:46] LABS: Cocaine Screen, Urine Neg (NEGATIVE)
[2025-06-18 16:10] LABS: Lipase 33.0 U/L (12-53)
[2025-06-18] MEDS ORDERED: VANCOMYCIN 1GM/250ML KIT 250 ML IV ONE (16:30)
[2025-06-18] MEDS ORDERED: VANCOMYCIN PER PHARMACY 0 MG IV SCH (16:30)
[2025-06-18 17:00] VITALS: PULSE 73; RESP 18; O2SAT 95
[2025-06-18] MEDS: VANCOMYCIN 1GM/250ML KIT 250 ML IV SCH ×2 (17:45→21:22)
--- NOTE | 2025-06-18 17:49 | DVH ---
EXAM: CT CT R FOOT WO CONTRAST INDICATION: foot pain, rule out osteomyelitis TECHNIQUE: Axial images of right foot without contrast have been obtained along with coronal and sagi ttal reformatted images. All CT scans at this facility use dose modulation, iterative reconstruction, and/or weight based dosing when appropriate to reduce radiation dose to as low as reasonably achieva ble. COMPARISON: XY R ANKLE 3 VIEW on DOS: 06/18/25 FINDINGS: BONES: No CT evidence of an acute fracture or aggressive osseous lesion. In regards to the clinical q uestion, no definitive CT evidence of osteomyelitis. No abnormal osseous erosion, lucency, sclerosis to suggest osteomyelitis. MUSCLES: No abnormal attenuation. JOINT SPACES: No joint effusion. TENDONS/LIGAMENTS: Intact. OTHER: Subcutaneous adipose tissue edema. Vascular calcifications. Extensive skin nodularity along t he posterior aspect of the heel without definitive underlying drainable fluid collection. IMPRESSION: 1. No definitive CT evidence of osteomyelitis. 2. No drainable fluid collection. 3. Extensive subcutaneous adipose tissue edema.
[2025-06-18] MEDS: CEFEPIME 1GM/50ML 50 ML IV ONE (18:16)
[2025-06-18] MEDS: MORPHINE SULFATE INJ 2 MG/ml SYRG IV PRN (18:17)
--- NOTE | 2025-06-18 18:23 | DVH ---
Bilateral lower extremity venous duplex Clinical History: Bilateral limb swelling Comparison: None Technique: Duplex Doppler evaluation of the deep venous systems of both lower extremities from the common femora l veins to the popliteal veins including color Doppler and spectral/pulsed waveform analysis was perf ormed. Findings: RIGHT SIDE: The common femoral vein demonstrates appropriate compressibility and waveform variability. There is compressibility/patency of the great saphenous vein at the proximal thigh. The femoral vein demonstrates appropriate compressibility and waveform variability. The deep femoral vein demonstrates appropriate compressibility and waveform variability. The popliteal vein demonstrates appropriate compressibility and waveform variability. Hirsch's cyst on the right measuring 4.4 x 2.7 x 2.4 cm There is normal compressibility at the tibioperoneal trunk. LEFT SIDE: The common femoral vein demonstrates appropriate compressibility and waveform variability. There is compressibility/patency of the great saphenous vein at the proximal thigh. The femoral vein demonstrates appropriate compressibility and waveform variability. The deep femoral vein demonstrates appropriate compressibility and waveform variability. The popliteal vein demonstrates appropriate compressibility and waveform variability. There is normal compressibility at the tibioperoneal trunk. Impression: 1. No right or left femoropopliteal venous thrombosis. 2. Hirsch's cyst on the right measuring 4.4 by 2.7 x 2.4 cm.
[2025-06-18] MEDS: ACETAMINOPHEN 325 MG TAB PO PRN (19:53)
[2025-06-18 21:00] VITALS: BP 156/82; PULSE 78; RESP 19; TEMP 98.8; O2SAT 95
[2025-06-18 22:11] LABS: COVID19 ANTIGEN SOFIA FIA NEGATIVE (NEGATIVE)
[2025-06-18 22:28] LABS: Alanine Aminotransferase 12.0 U/L (7-40); Albumin 4.4 g/dL (3.2-4.8); Alkaline Phosphatase 71.0 U/L (46-116); Bilirubin, Direct 0.2 mg/dL (<0.3); Bilirubin, Total 0.7 mg/dL (0.2-1.0); Total Protein 7.7 g/dL (5.7-8.2)
[2025-06-18] MEDS: ATORVASTATIN 20 MG TAB PO SCH (22:42)
[2025-06-18] MEDS: methylPREDNISolone SOD SUCC 40 MG/ML VL IV ONE (22:42)
[2025-06-18] MEDS: CEFEPIME 1GM/50ML 50 ML IV SCH (22:43)
[2025-06-18 23:04] VITALS: PULSE 85; RESP 16; O2SAT 94
[2025-06-18] MEDS: LEVALBUTEROL HCL 1.25 MG/3 ML NEB NEB SCH (23:04)
[2025-06-18 23:05] VITALS: BP 141/67; PULSE 78; RESP 18; TEMP 98; O2SAT 94
[2025-06-19] VITALS (14 sets, daily range): BP systolic 105–151; BP diastolic 63–92; PULSE 60–90; RESP 14–20; TEMP 97.3–99.6; O2SAT 91–100
[2025-06-19] MEDS: IPRATROPIUM BROM 0.5 MG/2.5ML INH SOL NEB SCH (06:27)
[2025-06-19 06:59] LABS: Alanine Aminotransferase 13 U/L (7-40); Albumin 4.1 g/dL (3.2-4.8); Alkaline Phosphatase 70 U/L (46-116); Anion Gap 10 (5-15); BUN/Creatinine Ratio 16.4 (10.0-20.0); Blood Urea Nitrogen 20 mg/dL (9-23); Calcium 8.9 mg/dL (8.7-10.4); Carbon Dioxide 25 mmol/L (20-31); Chloride 107 mmol/L (98-107); Potassium 4.5 mmol/L (3.5-5.1); Sodium 142 mmol/L (136-145); Total Protein 6.8 g/dL (5.7-8.2)
[2025-06-19 07:00] LABS: Bilirubin, Total 0.6 mg/dL (0.2-1.0)
[2025-06-19 07:02] LABS: Hematocrit 41.3 % (41.0-53.0); Hemoglobin 14.7 g/dL (13.5-17.5); Mean Corpuscular Hemoglobin 33.8 pg (28.0-32.0); Mean Corpuscular Volume 94.9 fL (80.0-100.0)
[2025-06-19 07:25] LABS: Glucose 126 mg/dL (74-106)
[2025-06-19 08:16] LABS: Total Cells Counted 100.0 (100)
[2025-06-19] MEDS: methylPREDNISolone SOD SUCC 40 MG/ML VL IV SCH (08:39)
[2025-06-19] MEDS: ENOXAPARIN SOD 40 MG/0.4 ML SYRINGE SC SCH (08:39)
--- NOTE | 2025-06-19 11:53 | DVHCONRES ---
Date Seen: Jun 19, 2025 Reason for Consultation Right ankle pain History of Present Illness Rene Albrecht is a 75-year-old male patient who presents to ED with chief complaint of not being able to bear weight on his right foot. Patient reports recent history of CVA two weeks ago, with residual left-sided weakness, he went to a rehab center and he is now mobilizes with wheelchair. Patient was able to previously stent in bear weight on his right foot, but since the day of his admission, he could not bear his weight, prompting his visit to the ED. Denies any other associated symptom. Past Medical History See H&P Past Surgical History See H&P Family History: Patient reports no known family medical history. Allergies: Coded Allergies: NO KNOWN ALLERGIES (Unverified , 02/06/25) Home Meds Active Scripts Hydrocodone-Acetaminophen (Hydrocodone Bitartrate/AC 5-325 mg) 1 Tab Tab, 1 TAB PO Q6HPRN PRN, #10 TAB Prov:KALEB NO MD 02/07/25 Clonidine Hydrochloride (Clonidine Hcl) 0.1 Mg Tab, 0.1 MG PO BID, #60 TAB Prov:KALEB NO MD 02/07/25 Current Medications Current Medications Medications (Trade) Dose Ordered Sig/Bryan Route PRN Reason Start Time Stop Time Status Last Admin Acetaminophen (Tylenol Tablet) 325 mg Q4HP PRN PO MILD PAIN (1-3 PAIN SCALE) 06/18/25 15:00 06/18/25 19:53 Ondansetron HCl (Zofran) 4 mg Q4HP PRN IV NAUSEA / VOMITING 06/18/25 15:00 Morphine Sulfate 2 mg Q4HPRN PRN IV SEVERE PAIN (7-10 PAIN SCALE) 06/18/25 15:00 06/18/25 23:04 Enoxaparin Sodium (Lovenox) 40 mg DAILY SC 06/19/25 10:00 06/19/25 08:39 Aspirin 81 mg DAILY PO 06/19/25 10:00 06/19/25 08:39 Atorvastatin Calcium (Lipitor) 40 mg HS PO 06/18/25 22:00 06/18/25 22:42 Vancomycin HCl 0 ml @ 0 mls/hr PER PHARMACY IV 06/18/25 16:30 Cefepime HCl 50 ml @ 12.5 mls/hr Q8HR IV 06/18/25 22:00 06/19/25 04:58 Vancomycin HCl 250 ml @ 250 mls/hr Q1H IV 06/18/25 16:45 06/18/25 18:44 DC 06/18/25 19:52 Vancomycin HCl 250 ml @ 250 mls/hr Q1H IV 06/18/25 21:15 06/18/25 22:14 DC 06/18/25 21:22 Levalbuterol HCl (Xopenex Medneb) 0.625 mg Q6HR NEB 06/19/25 00:00 06/19/25 06:27 Ipratropium [place] (Atrovent Medneb) 0.5 mg Q6HWA NEB 06/19/25 06:00 06/19/25 06:27 Methylprednisolone Sodium Succinate (Solu Medrol) 40 mg DAILY IV 06/19/25 10:00 06/19/25 08:39 Vancomycin HCl 250 ml @ 250 mls/hr Q12H IV 06/19/25 13:00 UNV Vital Signs Vital Signs Date Time Temp Pulse Resp B/P (MAP) Pulse Ox O2 Delivery O2 Flow Rate FiO2 06/19/25 09:00 97.3 78 18 151/90 (110) 93 97.3 06/19/25 06:30 Nasal Cannula* 2 28 Physical Exam Dermatological: Skin is dry with mild erythema and some maceration around the wound site No gross deformities noted Mild non-pitting edema present bilaterally Vascular: Dorsalis pedis and posterior tibial pulses are 1+ bilaterally Capillary refill is under 2 seconds Skin temperature is warm bilaterally Neurologic: Protective sensation is absent on the plantar forefoot bilaterally Monofilament testing reveals decreased sensation in multiple plantar sites Musculoskeletal: Right ankle lateral tenderness Range of motion at the ankle and MTP joints is within normal limits. Strength is 5/5 in all tested muscle groups. Gait is antalgic due to offloading of the affected limb. Labs/Diagnostic Data Labs Test 06/19/25 05:21 06/18/25 20:34 06/18/25 19:27 06/18/25 15:03 Range/Units White Blood Count 8.8 4.4-10.8 10^3/uL Red Blood Count 4.35 L 4.5-5.90 10^6/uL Hemoglobin 14.7 13.5-17.5 g/dL Hematocrit 41.3 41.0-53.0 % Mean Corpuscular Volume 94.9 80.0-100.0 fL Mean Corpuscular Hemoglobin 33.8 H 28.0-32.0 pg Mean Corpuscular Hemoglobin Concent 35.6 32.0-36.0 g/dL Red Cell Distribution Width 13.1 11.8-14.3 % Platelet Count 249 140-450 10^3/uL Mean Platelet Volume 9.6 6.9-10.8 fL Neutrophils (%) (Auto) 37.0-80.0 % Lymphocytes (%) (Auto) 10.0-50.0 % Monocytes (%) (Auto) 0.0-12.0 % Basophils (%) (Auto) 0.0-2.0 % Neutrophils # (Auto) 1.6-8.6 10 ^3/uL Lymphocytes # (Auto) 0.4-5.4 10 ^3/uL Monocytes # (Auto) 0-1.3 10 ^3/uL Differential Total Cells Counted 100.0 100 Neutrophils % (Manual) 87 H 37.0-80.0 Band Neutrophils % (Manual) 3 Lymphocytes % (Manual) 7 L 10.0-50.0 Monocytes % (Manual) 2 0-12 Eosinophils % (Manual) 0 0-7 Basophils % (Manual) 0 0.0-2.0 Metamyelocytes % (manual) 0 Myelocytes % (Manual) 1 Promyelocytes % (Manual) 0 Blast Cells % (Manual) 0 Reactive Lymphocytes 0 Platelet Estimate Adequate Large Platelets Few Sodium Level 142 136-145 mmol/L Potassium Level 4.5 3.5-5.1 mmol/L Chloride Level 107 98-107 mmol/L Carbon Dioxide Level 25 20-31 mmol/L Anion Gap 10 5-15 Blood Urea Nitrogen 20 9-23 mg/dL Creatinine 1.22 0.700-1.30 mg/dL Glomerular Filtration Rate Calc 63 >90 mL/min BUN/Creatinine Ratio 16.4 10.0-20.0 Serum Glucose 126 H 74-106 mg/dL Calcium Level 8.9 8.7-10.4 mg/dL Total Bilirubin 0.6 0.2-1.0 mg/dL Aspartate Amino Transferase (AST) 18 13-40 U/L Alanine Aminotransferase (ALT) 13 7-40 U/L Alkaline Phosphatase 70 46-116 U/L C-Reactive Protein High Sensitivity 10.48 H <1.0 mg/dL Total Protein 6.8 5.7-8.2 g/dL Albumin 4.1 3.2-4.8 g/dL Random Vancomycin Level 12.7 H 5-10 ug/mL SARS-CoV-2 Antigen (Rapid) Negative NEGATIVE Influenza Type A Antigen Negative Negative Influenza Type B Antigen Negative Negative Urine Color Yellow Yellow Urine Clarity Clear Clear Urine pH 5.5 5.0-9.0 Urine Specific [place] 1.030 1.001-1.035 Urine Protein 1+ H Negative Urine Ketones Trace Negative Urine Blood Negative Negative /uL Urine Nitrite Negative Negative Urine Bilirubin Negative Negative Urine Urobilinogen 2 H Negative mg/dL Urine Leukocyte Esterase Negative Negative /uL Urine RBC 2 0 - 3 /hpf Urine Microscopic WBC 2 0-3 /HPF Urine Squamous Epithelial Cells Few <5 /hpf Urine Bacteria None seen None Seen /hpf Urine Mucus Few None Seen Urine Glucose Normal Normal mg/dL Urine Opiates Screen Neg NEGATIVE Urine Fentanyl Screen Neg NEGATIVE Urine Barbiturates Screen Neg NEGATIVE Urine Phencyclidine Screen Neg NEGATIVE Urine Amphetamines Screen Neg NEGATIVE Urine Benzodiazepines Screen Neg NEGATIVE Urine Cocaine Screen Neg NEGATIVE Urine Cannabinoids Screen Pos NEGATIVE Test 06/18/25 12:59 Range/Units Eosinophils (%) (Auto) 0.5 0.0-7.0 % Eosinophils # (Auto) 0 0-0.8 10 ^3/uL Basophils # (Auto) 0 0-0.2 10 ^3/uL Nucleated Red Blood Cells 0.1 % Prothrombin Time 11.1 9.3-11.8 sec Prothrombin Time INR 1.05 0.9-1.15 Activated Partial Thromboplast Time 32.9 24.5-34.5 SEC Hemoglobin A1c 5.0 <5.7 % A1C Phosphorus Level 3.4 2.4-5.1 mg/dL Magnesium Level 2.0 1.6-2.6 mg/dL Direct Bilirubin 0.2 <0.3 mg/dL B-Type Natriuretic Peptide 41.98 0-100 pg/mL Triglycerides Level 137 < 150 mg/dL Cholesterol Level 160 < 200 mg/dL LDL Cholesterol 101 H < 100 mg/dL HDL Cholesterol 42 40-59 mg/dL Lipase 33 12-53 U/L Vitamin B12 Level 413 211-911 pg/mL Vitamin D 25-Hydroxy 15.1 L 30.0-100 ng/mL Thyroid Stimulating Hormone (TSH) 1.10 0.55-4.78 uIU/mL Microbiology Date/Time Source Procedure Growth Status 06/18/25 15:03 Voided Urine Urine Culture - Preliminary Resulted Problems(with codes): (1) Dehydration (2) Hypokalemia (3) Heat exhaustion (4) Rhabdomyolysis (5) Bilateral edema of lower extremity (6) Unable to care for self (7) Opacities of both lungs present on chest x-ray (8) Generalized weakness (9) Need for geriatric social work professor intervention Plan/Recommendation ASSESSMENT: Patient is a 75-year-old seen on the floor for right ankle sprain PLAN: - The patients chart was reviewed, clinical findings were discussed with the patient, the etiologies of the conditions were discussed in detail, and a treatment plan was agreed to at this time, with both oral and written instructions provided. - reviewed advanced imaging - recommend boot if he is weightbearing - we will need foot care wounds discharge - continue workup of the issues - work with PT All questions were answered and concerns addressed to the patient's satisfaction. The patient was given the phone number to the clinic and was told how to make contact with the clinic should any concerns or questions arise. Patient understands that if any questions or concerns arise prior to the next appointment, we should be contacted immediately. FOLLOW-UP: Continue to follow while inpatient Plan discussed with: Patient Visit Coding Podiatry Date of Service if different f: Jun 19, 2025 Billing Provider: BRITTANY CANNON DPM Podiatry Common Visit Codes: CONSULT ONLY Podiatry Consult Codes: 72661-DU/OBS CONSLTJ NEW/EST HI 80 BRITTANY CANNON DPM Jun 19, 2025 11:53
--- NOTE | 2025-06-19 12:01 | MEDREC ---
[facility] Intervention Section I [facility] Intervention: Review courses of therapy (No signs/symptoms of intraabdominal infection, please consider d/c metronidazole. In addition, patient has allergy to penicillins but received a dose of ceftriaxone on 06/15 with no adverse drug reaction documented, please consider adding cefepime to provide adequate coverage if clinically relevant ) [facility] RESIDENT Jun 19, 2025 12:01
--- NOTE | 2025-06-19 12:44 | DVHSR ---
APPROVED REPORT EXAM: Two-dimensional and M-mode echocardiogram with Doppler and color Doppler. Blood Pressure: 150/68 mmHg INDICATION Peripheral Edema RISK FACTORS Height: 6', Weight: 242 DIMENSIONS LVDd4.3 (3.8-5.7cm)LA (2D)3.5 (1.9-4.0cm)Aortic Root (2.0-3.7cm) LVDs3.0 (2.5-4.0cm)LA (MM) (1.9-4.0cm)Aortic Cusp Exc (1.5-2.0cm) EF (%) 57.0 (55-70%)Rt. Atrium (1.9-4.0cm)Asc. Aorta cm IVSd1.4 (0.7-1.1cm)RV (D) (1.8-2.4cm) Mitral Valve MitralMitral Stenosis E wave0.75m/sMV Mean GR.mmHg A wave0.93m/sMV Peak GR.mmHg E/A ratio0.82D MVAcm2 DECEL [id number] 1/2 Timems Aortic Valve Aortic ValveAortic Stenosis V11.15m/Kvng Mean GR.6mmHg V21.62m/Kvng Peak GR.11mmHg LVOT Diameter2.0 (1.8-2.4cm)Doppler AVA2.23cm2 Other Information Quality : Technically LimitedRhythm : Technically limited study due to body habitus. Conclusion lvef 60% normal rv function left atrium enlarged mild
[2025-06-19] MEDS: VANCOMYCIN 1GM/250ML KIT 250 ML IV SCH (13:08)
--- NOTE | 2025-06-19 13:57 | DVHPNRES ---
Progress Note Date Seen: Jun 19, 2025 Resident Creating Document: NEGRO CANNON RESIDENT Has the PT tested + for MRSA If YES, has PT been informed?: No Medical Necessity Reason Pt with a Central, PICC or Fol: No Subjective Review of Systems Rene Albrecht is a 75-year-old male patient with Past medical story of hypertension, CVA in February, peritonsillar abscess presented with complaints of pain and swelling in the right foot. He states he had any history of CVA in February. He was in a rehab center in [place] for 90 days. Patient was sent home 2 days ago. He reports that he is unable to walk due to the pain. 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 15 pack-year history of smoking. Denies current alcohol and other drug abuse. Allergy: Denies Home medication: Denies (he says he was not taking any aspirin or atorvastatin even after stroke). General: patient denies fever, fatigue, weaknes, sweating, any recent changes in appetite and weight HEENT: No headaches, visiual changes, hearing loss, tinnitus, nasal congestion and discharge, and sore throat. Cardiovascular: Denies chest pain, palpitations, dyspnea on exertion, orthopnea, or claudication. Respiratory: No cough, and wheezing. Gastrointestinal: Denies nausea, vomiting, dysphagia, odynophagia, heartburn, abdominal pain, flatulence, bloating, diarrhea, constipation, change in stool, or blood in stool. Genitourinary: No dysuria, hematuria, discharge, frequency, urgency, nocturia, incontinence, and urinary retention. Endocrine: No heat or cold intolerance, polydipsia, polyuria, and polyphagia. Neurological: No dizziness, extremity weakness and numbness, tremors, gait disturbance, seizures, and memory impairment. Psychiatric: Denies depression, anxiety,or insomnia. Musculoskeletal: complains of right foot pain Skin: No rashes, itching, skin lesion, changes in hair, nail, skin texture and breast. Hematologic/Lymphatic: Denies easy bruising, bleeding tendencies, or lymph node enlargement. Objective vital signs Vital Sign Date Time Temp Pulse Resp B/P (MAP) Pulse Ox O2 Delivery O2 Flow Rate FiO2 06/19/25 12:29 74 16 100 06/19/25 09:00 97.3 151/90 (110) 97.3 06/19/25 06:30 Nasal Cannula* 2 28 Total Intake and Output 06/18/25 06/18/25 06/19/25 15:00 23:00 07:00 Intake Total 500 ml 490 ml Output Total 200 ml Balance 500 ml 290 ml medications Current Medications Medications Dose Ordered Sig/Bryan Route Start Time Stop Time Status Last Admin Dose Admin Acetaminophen 325 mg Q4HP PRN PO 06/18/25 15:00 06/18/25 19:53 325 MG Ondansetron HCl 4 mg Q4HP PRN IV 06/18/25 15:00 Morphine Sulfate 2 mg Q4HPRN PRN IV 06/18/25 15:00 06/18/25 23:04 2 MG Enoxaparin Sodium 40 mg DAILY SC 06/19/25 10:00 06/19/25 08:39 40 MG Aspirin 81 mg DAILY PO 06/19/25 10:00 06/19/25 08:39 81 MG Atorvastatin Calcium 40 mg HS PO 06/18/25 22:00 06/18/25 22:42 40 MG Vancomycin HCl 0 ml @ 0 mls/hr PER PHARMACY IV 06/18/25 16:30 Cefepime HCl 50 ml @ 12.5 mls/hr Q8HR IV 06/18/25 22:00 06/19/25 04:58 12.5 MLS/HR Levalbuterol HCl 0.625 mg Q6HR NEB 06/19/25 00:00 06/19/25 12:17 0.625 MG Ipratropium [place] 0.5 mg Q6HWA [facility] 06/19/25 06:00 06/19/25 12:17 0.5 MG Methylprednisolone Sodium Succinate 40 mg DAILY IV 06/19/25 10:00 06/19/25 08:39 40 MG Vancomycin HCl 250 ml @ 250 mls/hr Q12H IV 06/19/25 13:00 06/19/25 13:08 250 MLS/HR Examination General Appearance: Alert, Oriented X3, Cooperative, No acute distress HEENT: Atraumatic, PERRLA, EOMI, Mucous membrane moist/pink Respiratory: Clear to auscultation, Normal air movement Cardiovascular: Regular rate, Normal S1, Normal S2, No murmurs, no chest wall tenderness Abdominal: Normal bowel sounds, Soft, No tenderness, No hepatospenomegaly, No masses Extremities: No clubbing, No cyanosis, No edema, Normal pulses, edema and tenderness in the right foot. Skin: No rashes, No breakdown, No significant lesion Neuro: Normal gait, Normal speech, Strength at 5/5 X4 ext, Normal tone, Sensation intact, Cranial nerves 3-12 NL, Reflexes 2+ Psych/Mental Status: Mental status NL, Mood NL laboratory and microbiology Laboratory Tests 06/19/25 05:21 Test 06/19/25 05:21 Range/Units Serum Glucose 126 H 74-106 mg/dL Microbiology Date/Time Source Procedure Growth Status 06/18/25 15:03 Voided Urine Urine Culture - Preliminary Resulted Problem List/Assessment/Plan Problem List/Assessment/Plan Assessment and plan # ? 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 Ray Patient's status and plan discussed with the patient. Case discussed with Dr. Hernandez Plan discussed with: Patient My Orders My Orders Orders - NEGRO CANNON Procedure Category Date Status Time Communication Order ORDERS 06/19/25 Transmitted 12:59 Date of Service: Jun 19, 2025 Billing Provider: MARLENI HERNANDEZ MD Common Visit Codes: [id number] INP/OBS CARE(HIGH) Secondary Visit Codes: [id number] CARE PLAN 30 MINUTES NEGRO CANNON Jun 19, 2025 13:56 MARLENI HERNANDEZ MD Jun 25, 2025 18:43
[2025-06-19] MEDS: ERGOCALCIFEROL 50,000 UNIT(1.25MG) CAP PO SCH (14:49)
[2025-06-20] VITALS (8 sets, daily range): BP systolic 144–181; BP diastolic 76–118; PULSE 75–94; RESP 16–18; TEMP 97.6–98.7; O2SAT 90–94
[2025-06-20] MEDS: ONDANSETRON HCL 4 MG/2 ML VIAL IV PRN (01:36)
[2025-06-20 06:11] LABS: Hematocrit 37.0 % (41.0-53.0); Hemoglobin 13.0 g/dL (13.5-17.5); Mean Corpuscular Hemoglobin 32.6 pg (28.0-32.0); Mean Corpuscular Volume 93.0 fL (80.0-100.0); Nucleated Red Blood Cells % 0.0 %
[2025-06-20 06:27] LABS: Potassium 3.6 mmol/L (3.5-5.1); Sodium 143 mmol/L (136-145)
[2025-06-20 06:28] LABS: Anion Gap 10 (5-15); Carbon Dioxide 26 mmol/L (20-31)
[2025-06-20 06:29] LABS: Calcium 8.8 mg/dL (8.7-10.4)
[2025-06-20 06:34] LABS: BUN/Creatinine Ratio 18.8 (10.0-20.0); Blood Urea Nitrogen 21 mg/dL (9-23)
[2025-06-20 06:37] LABS: Chloride 107 mmol/L (98-107); Glucose 106 mg/dL (74-106)
[2025-06-20] MEDS: FUROSEMIDE 40 MG/4 ML VIAL IV ONE (12:01)
[2025-06-20] MEDS ORDERED: ceFAZolin 1GM/50ML 50 ML IV SCH (14:00)
--- NOTE | 2025-06-20 14:01 | DVHPNRES ---
Progress Note Date Seen: Jun 20, 2025 Resident Creating Document: NEGRO CANNON RESIDENT Has the PT tested + for MRSA If YES, has PT been informed?: No Medical Necessity Reason Pt with a Central, PICC or Fol: No Subjective Review of Systems Patient seen at bedside. No new complaints. Patient conveys the pain is slightly better. Says that the pain is increasing with wearing the walking boot, refused using it. Rene Albrecht is a 75-year-old male patient with Past medical story of hypertension, CVA in February, peritonsillar abscess presented with complaints of pain and swelling in the right foot. He states he had any history of CVA in February. He was in a rehab center in [place] for 90 days. Patient was sent home 2 days ago. He reports that he is unable to walk due to the pain. 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 15 pack-year history of smoking. Denies current alcohol and other drug abuse. Allergy: Denies Home medication: Denies (he says he was not taking any aspirin or atorvastatin even after stroke). General: patient denies fever, fatigue, weaknes, sweating, any recent changes in appetite and weight HEENT: No headaches, visiual changes, hearing loss, tinnitus, nasal congestion and discharge, and sore throat. Cardiovascular: Denies chest pain, palpitations, dyspnea on exertion, orthopnea, or claudication. Respiratory: No cough, and wheezing. Gastrointestinal: Denies nausea, vomiting, dysphagia, odynophagia, heartburn, abdominal pain, flatulence, bloating, diarrhea, constipation, change in stool, or blood in stool. Genitourinary: No dysuria, hematuria, discharge, frequency, urgency, nocturia, incontinence, and urinary retention. Endocrine: No heat or cold intolerance, polydipsia, polyuria, and polyphagia. Neurological: No dizziness, extremity weakness and numbness, tremors, gait disturbance, seizures, and memory impairment. Psychiatric: Denies depression, anxiety,or insomnia. Musculoskeletal: complains of right foot pain Skin: No rashes, itching, skin lesion, changes in hair, nail, skin texture and breast. Hematologic/Lymphatic: Denies easy bruising, bleeding tendencies, or lymph node enlargement. Objective vital signs Vital Sign Date Time Temp Pulse Resp B/P (MAP) Pulse Ox O2 Delivery O2 Flow Rate FiO2 06/20/25 12:01 167/92 06/20/25 08:49 98.7 77 18 92 98.7 06/20/25 08:00 Nasal Cannula* 2 28 Total Intake and Output 06/19/25 06/19/25 06/20/25 15:00 23:00 07:00 Intake Total 300 ml 590 ml 175 ml Output Total 800 ml 300 ml Balance 300 ml -210 ml -125 ml medications Current Medications Medications Dose Ordered Sig/Bryan Route Start Time Stop Time Status Last Admin Dose Admin Acetaminophen 325 mg Q4HP PRN PO 06/18/25 15:00 06/18/25 19:53 325 MG Ondansetron HCl 4 mg Q4HP PRN IV 06/18/25 15:00 06/20/25 01:36 4 MG Morphine Sulfate 2 mg Q4HPRN PRN IV 06/18/25 15:00 06/18/25 23:04 2 MG Enoxaparin Sodium 40 mg DAILY SC 06/19/25 10:00 06/19/25 08:39 40 MG Aspirin 81 mg DAILY PO 06/19/25 10:00 06/20/25 10:00 81 MG Atorvastatin Calcium 40 mg HS PO 06/18/25 22:00 06/19/25 21:45 40 MG Levalbuterol HCl 0.625 mg Q6HR NEB 06/19/25 00:00 06/19/25 19:24 0.625 MG Ipratropium [place] 0.5 mg Q6HWA NEB 06/19/25 06:00 06/19/25 19:23 0.5 MG Ergocalciferol 50,000 unit Q7D PO 06/19/25 15:00 07/20/25 14:59 06/19/25 14:49 50,000 UNIT Cefazolin Sodium/ Dextrose 50 ml @ 50 mls/hr Q8HR IV 06/20/25 14:00 Prednisone 40 mg DAILY PO 06/21/25 10:00 06/23/25 23:59 UNV Examination General Appearance: Alert, Oriented X3, Cooperative, No acute distress HEENT: Atraumatic, PERRLA, EOMI, Mucous membrane moist/pink Respiratory: Clear to auscultation, Normal air movement Cardiovascular: Regular rate, Normal S1, Normal S2, No murmurs, no chest wall tenderness Abdominal: Normal bowel sounds, Soft, No tenderness, No hepatospenomegaly, No masses Extremities: No clubbing, No cyanosis, No edema, Normal pulses, edema and tenderness in the right foot. Skin: No rashes, No breakdown, No significant lesion Neuro: Normal gait, Normal speech, Strength at 5/5 X4 ext, Normal tone, Sensation intact, Cranial nerves 3-12 NL, Reflexes 2+ Psych/Mental Status: Mental status NL, Mood NL laboratory and microbiology Laboratory Tests 06/20/25 05:29 Test 06/20/25 05:29 Range/Units Serum Glucose 106 74-106 mg/dL Microbiology Date/Time Source Procedure Growth Status 06/18/25 19:29 Nose MRSA Screen - Final Complete 06/18/25 18:50 Blood Blood Culture - Preliminary NO GROWTH AFTER 24 HOURS OF INCUBATION. Resulted 06/18/25 15:03 Voided Urine Urine Culture - Preliminary Resulted Problem List/Assessment/Plan Problem List/Assessment/Plan Assessment and plan # ? 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 Ray Patient's status and plan discussed with the patient. Case discussed with Dr. Hernandez Plan discussed with: Patient My Orders My Orders Orders - NEGRO CANNON Procedure Category Date Status Time Ergocalciferol PHA 06/19/25 In Process (Vitamin D 50,000 15:00 Date of Service: Jun 20, 2025 Billing Provider: MARLENI HERNANDEZ MD Common Visit Codes: [id number] INP/OBS CARE(HIGH) NEGRO CANNON RESIDENT Jun 20, 2025 14:01 MARLENI HERNANDEZ MD Jun 25, 2025 18:43
[2025-06-20] MEDS: ceFAZolin 2 GM/D5W50ml 50 ML IV SCH (15:05)
[2025-06-21] VITALS (8 sets, daily range): BP systolic 133–169; BP diastolic 76–87; PULSE 67–80; RESP 18–20; TEMP 97–98.7; O2SAT 90–95
[2025-06-21 06:29] LABS: Hematocrit 38.2 % (41.0-53.0); Hemoglobin 13.4 g/dL (13.5-17.5); Mean Corpuscular Hemoglobin 32.6 pg (28.0-32.0); Mean Corpuscular Volume 92.7 fL (80.0-100.0); Nucleated Red Blood Cells % 0.0 %
[2025-06-21 06:54] LABS: Alanine Aminotransferase 24 U/L (7-40); Albumin 3.8 g/dL (3.2-4.8); Alkaline Phosphatase 55 U/L (46-116); Anion Gap 9 (5-15); BUN/Creatinine Ratio 19.0 (10.0-20.0); Bilirubin, Total 0.4 mg/dL (0.2-1.0); Blood Urea Nitrogen 22 mg/dL (9-23); Calcium 8.8 mg/dL (8.7-10.4); Carbon Dioxide 30 mmol/L (20-31); Chloride 103 mmol/L (98-107); Glucose 89 mg/dL (74-106); Potassium 3.5 mmol/L (3.5-5.1); Sodium 142 mmol/L (136-145); Total Protein 6.7 g/dL (5.7-8.2)
[2025-06-21] MEDS: predniSONE 20 MG TAB PO SCH (09:27)
--- NOTE | 2025-06-21 16:18 | DVHPNRES ---
Progress Note Date Seen: Jun 21, 2025 Resident Creating Document: NEGRO CANNON RESIDENT Has the PT tested + for MRSA If YES, has PT been informed?: No Medical Necessity Reason Pt with a Central, PICC or Fol: No Subjective Review of Systems Patient seen at bedside. No new complaints. Physiotherapy eval done. Front wheel walker advised Rene Albrecht is a 75-year-old male patient with Past medical story of hypertension, CVA in February, peritonsillar abscess presented with complaints of pain and swelling in the right foot. He states he had any history of CVA in February. He was in a rehab center in [place] for 90 days. Patient was sent home 2 days ago. He reports that he is unable to walk due to the pain. 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 15 pack-year history of smoking. Denies current alcohol and other drug abuse. Allergy: Denies Home medication: Denies (he says he was not taking any aspirin or atorvastatin even after stroke). General: patient denies fever, fatigue, weakness, sweating, any recent changes in appetite and weight HEENT: No headaches, visiual changes, hearing loss, tinnitus, nasal congestion and discharge, and sore throat. Cardiovascular: Denies chest pain, palpitations, dyspnea on exertion, orthopnea, or claudication. Respiratory: No cough, and wheezing. Gastrointestinal: Denies nausea, vomiting, dysphagia, odynophagia, heartburn, abdominal pain, flatulence, bloating, diarrhea, constipation, change in stool, or blood in stool. Genitourinary: No dysuria, hematuria, discharge, frequency, urgency, nocturia, incontinence, and urinary retention. Endocrine: No heat or cold intolerance, polydipsia, polyuria, and polyphagia. Neurological: No dizziness, extremity weakness and numbness, tremors, gait disturbance, seizures, and memory impairment. Psychiatric: Denies depression, anxiety,or insomnia. Musculoskeletal: complains of right foot pain Skin: No rashes, itching, skin lesion, changes in hair, nail, skin texture and breast. Hematologic/Lymphatic: Denies easy bruising, bleeding tendencies, or lymph node enlargement. Objective vital signs Vital Sign Date Time Temp Pulse Resp B/P (MAP) Pulse Ox O2 Delivery O2 Flow Rate FiO2 06/21/25 14:51 149/83 06/21/25 09:11 97.0 73 20 92 97.0 06/21/25 08:05 Room Air* 0 21 Total Intake and Output 06/20/25 06/20/25 06/21/25 15:00 23:00 07:00 Intake Total 535 ml 325 ml Output Total 900 ml 900 ml Balance -365 ml -575 ml medications Current Medications Medications Dose Ordered Sig/Bryan Route Start Time Stop Time Status Last Admin Dose Admin Acetaminophen 325 mg Q4HP PRN PO 06/18/25 15:00 06/21/25 09:27 325 MG Ondansetron HCl 4 mg Q4HP PRN IV 06/18/25 15:00 06/20/25 01:36 4 MG Morphine Sulfate 2 mg Q4HPRN PRN IV 06/18/25 15:00 06/20/25 22:20 2 MG Enoxaparin Sodium 40 mg DAILY SC 06/19/25 10:00 06/21/25 09:26 40 MG Aspirin 81 mg DAILY PO 06/19/25 10:00 06/21/25 09:27 81 MG Atorvastatin Calcium 40 mg HS PO 06/18/25 22:00 06/20/25 20:30 40 MG Levalbuterol HCl 0.625 mg Q6HR NEB 06/19/25 00:00 06/19/25 19:24 0.625 MG Ipratropium [place] 0.5 mg Q6HWA NEB 06/19/25 06:00 06/19/25 19:23 0.5 MG Ergocalciferol 50,000 unit Q7D PO 06/19/25 15:00 07/20/25 14:59 06/19/25 14:49 50,000 UNIT Cefazolin Sodium/ Dextrose 50 ml @ 50 mls/hr Q8HR IV 06/20/25 14:00 06/21/25 15:05 50 MLS/HR Prednisone 40 mg DAILY PO 06/21/25 10:00 06/23/25 23:59 06/21/25 09:27 40 MG Clonidine HCl 0.1 mg Q6HP PRN PO 06/20/25 18:30 06/21/25 11:32 0.1 MG Examination General Appearance: Alert, Oriented X3, Cooperative, No acute distress HEENT: Atraumatic, PERRLA, EOMI, Mucous membrane moist/pink Respiratory: Clear to auscultation, Normal air movement Cardiovascular: Regular rate, Normal S1, Normal S2, No murmurs, no chest wall tenderness Abdominal: Normal bowel sounds, Soft, No tenderness, No hepatospenomegaly, No masses Extremities: No clubbing, No cyanosis, No edema, Normal pulses, edema and tenderness in the right foot. Skin: No rashes, No breakdown, No significant lesion Neuro: Normal gait, Normal speech, Strength at 5/5 X4 ext, Normal tone, Sensation intact, Cranial nerves 3-12 NL, Reflexes 2+ Psych/Mental Status: Mental status NL, Mood NL laboratory and microbiology Laboratory Tests 06/21/25 05:34 Test 06/21/25 05:34 Range/Units Serum Glucose 89 74-106 mg/dL Microbiology Date/Time Source Procedure Growth Status 06/18/25 19:29 Nose MRSA Screen - Final Complete 06/18/25 18:50 Blood Blood Culture - Preliminary NO GROWTH AFTER 48 HOURS OF INCUBATION. Resulted 06/18/25 15:03 Voided Urine Urine Culture - Final Complete Problem List/Assessment/Plan Problem List/Assessment/Plan Assessment and plan # ? 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 Ray Patient's status and plan discussed with the patient. Case discussed with Dr. Hernandez Plan discussed with: Patient Date of Service: Jun 21, 2025 Billing Provider: MARLENI HERNANDEZ MD Common Visit Codes: [id number] INP/OBS CARE(HIGH) NEGRO CANNON RESIDENT Jun 21, 2025 16:18 MARLENI HERNANDEZ MD Jun 25, 2025 18:43
[2025-06-22 00:55] VITALS: BP 136/83; PULSE 68; RESP 17; TEMP 98.9; O2SAT 91
[2025-06-22 05:00] VITALS: BP 156/92; PULSE 62; RESP 17; TEMP 98.2; O2SAT 90
[2025-06-22 09:00] VITALS: BP 166/93; PULSE 62; RESP 18; TEMP 97.9; O2SAT 95
[2025-06-22 11:23] VITALS: BP 149/83; TEMP 36.6
--- NOTE | 2025-06-23 11:11 | DVHDSRES ---
Discharge Summary Date of Admission Resident Creating Document: NEGRO CANNON RESIDENT Jun 18, 2025 at 14:58 Date of Discharge: Jun 22, 2025 Labs/Diagnostic Data: Laboratory Results Test 06/21/25 05:34 06/19/25 05:21 06/18/25 20:34 06/18/25 19:27 White Blood Count 8.6 10^3/uL (4.4-10.8) Red Blood Count 4.13 10^6/uL (4.5-5.90) Hemoglobin 13.4 g/dL (13.5-17.5) Hematocrit 38.2 % (41.0-53.0) Mean Corpuscular Volume 92.7 fL (80.0-100.0) Mean Corpuscular Hemoglobin 32.6 pg (28.0-32.0) Mean Corpuscular Hemoglobin Concent 35.2 g/dL (32.0-36.0) Red Cell Distribution Width 12.8 % (11.8-14.3) Platelet Count 288 10^3/uL (140-450) Mean Platelet Volume 8.5 fL (6.9-10.8) Neutrophils (%) (Auto) 75.5 % (37.0-80.0) Lymphocytes (%) (Auto) 16.1 % (10.0-50.0) Monocytes (%) (Auto) 8.0 % (0.0-12.0) Eosinophils (%) (Auto) 0.2 % (0.0-7.0) Basophils (%) (Auto) 0.2 % (0.0-2.0) Neutrophils # (Auto) 6.5 10 ^3/uL (1.6-8.6) Lymphocytes # (Auto) 1.4 10 ^3/uL (0.4-5.4) Monocytes # (Auto) 0.7 10 ^3/uL (0-1.3) Eosinophils # (Auto) 0 10 ^3/uL (0-0.8) Basophils # (Auto) 0 10 ^3/uL (0-0.2) Nucleated Red Blood Cells 0.0 % Sodium Level 142 mmol/L (136-145) Potassium Level 3.5 mmol/L (3.5-5.1) Chloride Level 103 mmol/L (98-107) Carbon Dioxide Level 30 mmol/L (20-31) Anion Gap 9 (5-15) Blood Urea Nitrogen 22 mg/dL (9-23) Creatinine 1.16 mg/dL (0.700-1.30) Glomerular Filtration Rate Calc 67 mL/min (>90) BUN/Creatinine Ratio 19.0 (10.0-20.0) Serum Glucose 89 mg/dL (74-106) Calcium Level 8.8 mg/dL (8.7-10.4) Total Bilirubin 0.4 mg/dL (0.2-1.0) Aspartate Amino Transferase (AST) 24 U/L (13-40) Alanine Aminotransferase (ALT) 24 U/L (7-40) Alkaline Phosphatase 55 U/L (46-116) Total Protein 6.7 g/dL (5.7-8.2) Albumin 3.8 g/dL (3.2-4.8) Differential Total Cells Counted 100.0 (100) Neutrophils % (Manual) 87 (37.0-80.0) Band Neutrophils % (Manual) 3 Lymphocytes % (Manual) 7 (10.0-50.0) Monocytes % (Manual) 2 (0-12) Eosinophils % (Manual) 0 (0-7) Basophils % (Manual) 0 (0.0-2.0) Metamyelocytes % (manual) 0 Myelocytes % (Manual) 1 Promyelocytes % (Manual) 0 Blast Cells % (Manual) 0 Reactive Lymphocytes 0 Platelet Estimate Adequate Large Platelets Few C-Reactive Protein High Sensitivity 10.48 mg/dL (<1.0) Random Vancomycin Level 12.7 ug/mL (5-10) SARS-CoV-2 Antigen (Rapid) Negative (NEGATIVE) Influenza Type A Antigen Negative (Negative) Influenza Type B Antigen Negative (Negative) Test 06/18/25 15:03 06/18/25 12:59 Urine Color Yellow (Yellow) Urine Clarity Clear (Clear) Urine pH 5.5 (5.0-9.0) Urine Specific [place] 1.030 (1.001-1.035) Urine Protein 1+ (Negative) Urine Ketones Trace (Negative) Urine Blood Negative /uL (Negative) Urine Nitrite Negative (Negative) Urine Bilirubin Negative (Negative) Urine Urobilinogen 2 mg/dL (Negative) Urine Leukocyte Esterase Negative /uL (Negative) Urine RBC 2 /hpf (0 - 3) Urine Microscopic WBC 2 /HPF (0-3) Urine Squamous Epithelial Cells Few /hpf (<5) Urine Bacteria None seen /hpf (None Seen) Urine Mucus Few (None Seen) Urine Glucose Normal mg/dL (Normal) Urine Opiates Screen Neg (NEGATIVE) Urine Fentanyl Screen Neg (NEGATIVE) Urine Barbiturates Screen Neg (NEGATIVE) Urine Phencyclidine Screen Neg (NEGATIVE) Urine Amphetamines Screen Neg (NEGATIVE) Urine Benzodiazepines Screen Neg (NEGATIVE) Urine Cocaine Screen Neg (NEGATIVE) Urine Cannabinoids Screen Pos (NEGATIVE) Prothrombin Time 11.1 sec (9.3-11.8) Prothrombin Time INR 1.05 (0.9-1.15) Activated Partial Thromboplast Time 32.9 SEC (24.5-34.5) Hemoglobin A1c 5.0 % A1C (<5.7) Phosphorus Level 3.4 mg/dL (2.4-5.1) Magnesium Level 2.0 mg/dL (1.6-2.6) Direct Bilirubin 0.2 mg/dL (<0.3) B-Type Natriuretic Peptide 41.98 pg/mL (0-100) Triglycerides Level 137 mg/dL (< 150) Cholesterol Level 160 mg/dL (< 200) LDL Cholesterol 101 mg/dL (< 100) HDL Cholesterol 42 mg/dL (40-59) Lipase 33 U/L (12-53) Vitamin B12 Level 413 pg/mL (211-911) Vitamin D 25-Hydroxy 15.1 ng/mL (30.0-100) Thyroid Stimulating Hormone (TSH) 1.10 uIU/mL (0.55-4.78) Other Laboratory Tests 06/21/25 05:34 Brief Hx & Hospital Course: Rene Albrecht is a 75-year-old male patient with Past medical story of hypertension, CVA in February, peritonsillar abscess presented with complaints of pain and swelling in the right foot. He stated he had any history of CVA in February. He was in a rehab center in [place] for 90 days. Patient was sent home 2 days prior. He reported that he is unable to walk due to the pain. Foot x-ray was negative for any fractures or dislocations. DVT ultrasound was negative for any thrombosis, found Hirsch's cyst on the right side measuring 4.4 [address] foot showed extensive subcutaneous adipose tissue edema. During the course of the hospitalization the patient was clinically better and hence is being discharged. 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 Essential hypertension Vitamin-D deficiency Ruled out osteomyelitis Ruled out DVT Ruled out acute fractures of right foot Discharge Disposition: Home Discharge Instruct/Medications Diet: Cardiac 2g Na,low cholest Activity: No Restrictions, As Tolerated Follow Up/Referral: Follow up with PCP in 7 days Scheduled Clonidine Hydrochloride (Clonidine Hcl), 0.1 MG PO BID Scheduled PRN Hydrocodone-Acetaminophen (Hydrocodone Bitartrate/AC 5-325 mg), 1 TAB PO Q6HPRN PRN Discharge Statement: "Patient was advised to return to the ER or call 911 if any headaches, dizziness, shortness of breath, chest pain, abdominal pain, bleeding, fevers, or worsening of medical condition. Patient was counseled about treatment plan, medications, possible side effects, patientverbalized understanding. All questions were answered to the best of my ability. This discharge took greater then 30 minutes in planning, reviewing documentation, counseling the patient, and discussing with other team members." DME: Diagnosis: 3 in one commode in a post stroke patient with postural imbalance for activities of daily living. ASSESSMENT ASSESSMENT Assessment Ankle sprain h/o CVA with residual weakness Date of Service: Jun 22, 2025 Billing Provider: MARLENI PENA MD Common Visit Codes: 47228-PPV/[id number] DISCH DAY >30min NEGRO CANNON Jun 22, 2025 12:41 MARLENI PENA MD Jun 25, 2025 18:45
== END 2025-06-22 14:04 | disposition home or self-care (01) | DRG 563 ==
LOC: EDBD 11:33 → ER 11:35 → OVERFLOW 14:58 → EAST 16:50
PROVIDERS: ADMIT Internal Medicine Geriatric Medicine; ATTEND Internal Medicine Geriatric Medicine
DX: S93.401A Sprain of unspecified ligament of right ankle, initial encounter (principal); I69.354 Hemiplegia and hemiparesis following cerebral infarction affecting left non-dominant side; J44.0 Chronic obstructive pulmonary disease with (acute) lower respiratory infection; I10 Essential (primary) hypertension; J44.1 Chronic obstructive pulmonary disease with (acute) exacerbation; E55.9 Vitamin D deficiency, unspecified; M71.21 Synovial cyst of popliteal space [Baker], right knee; Z79.899 Other long term (current) drug therapy; X58.XXXA Exposure to other specified factors, initial encounter; Y93.89 Activity, other specified; Y92.89 Other specified places as the place of occurrence of the external cause; Y99.8 Other external cause status
CPT/HCPCS: 36415; 71046; 73610; 73630; 73700; 80048; 80053; 80061; 80076; 80202; 80307; 81001; 82306; 82607; 83036; 83690; 83735; 83880; 84100; 84443; 85007; 85025; 85027; 85610; 85730; 86141; 87040; 87081; 87086; 87426; 87804; 93306; 93970; 94640; 96360; 97110; 97116; 97163; 97530; G0378; J2405